=== PATIENT | male | born 1965 | race African-American/Black ===

== ENCOUNTER 2021-04-12 18:39 | Inpatient (IN) | payer MEDICARE, SELFPAY ==
[2021-04-12] VITALS (28 sets, daily range): BP systolic 85–132; BP diastolic 48–65; PULSE 94–117; RESP 15–30; TEMP 36.9; O2SAT 66–100
--- NOTE | ~2021-04-12 | XR_ITS ---
EXAMINATION: XR hand RT min 3V DATE: 04/15/2021 09:09 INDICATION: Osteomyelitis of the right index finger TECHNIQUE: Posteroanterior, oblique and lateral views of the right hand were obtained. COMPARISON: None. FINDINGS: The index finger is flexed on all the images which mildly limits assessment of the mid and distal pha langes on the frontal and oblique projections. Bone alignment is otherwise normal. No fracture. No ev ident cortical erosions or lucent osteolysis to suggest osteomyelitis. Joint spaces appear relatively preserved throughout. Diffuse soft tissue swelling about the second digit. IMPRESSION: 1. No findings suspicious for osteomyelitis or other acute osseous abnormality. Reviewed, dictated and finalized at location A. OGIC DEVELOPER
--- NOTE | ~2021-04-12 | XR_ITS ---
EXAMINATION: XR chest 1V portable DATE: 04/12/2021 19:12 INDICATION: Cough. Shortness of breath. COVID-19 pneumonia. TECHNIQUE: A single frontal view of the chest was obtained. COMPARISON: Chest single view 10/19/2018, chest CT 10/19/2018 FINDINGS: There are airspace opacities in all lung zones bilaterally. No pleural effusion or pneumoth orax. The heart size is normal. There is a stent in right brachiocephalic vein and right subclavian v ein. Vascular stents overlie left shoulder. IMPRESSION: 1. Diffuse lung disease, consistent with pneumonia versus pulmonary edema. Reviewed, dictated and finalized at location A. UIT INSTALLER
--- NOTE | 2021-04-12 18:58 | ECG_ITS ---
Measurements Intervals [place] Rate: 100 P: 77 WI: 147 QRS: -55 QRSD: 121 T: 78 QT: 356 QTc: 461 Interpretive Statements SINUS TACHYCARDIA LEFT ANTERIOR FASCICULAR BLOCK BORDERLINE ST-T WAVE ABNORMALITY- HIGH LATERAL LEADS BASELINE ARTIFACT- I, II, AVR, AVF, V2-V6 ABNORMAL ECG Electronically Signed On 04-12-2021 20:10:12 CRIMINAL DEFENSE LAWYER by Billy Leger D.O.
[2021-04-12 19:50] LABS: Basophils Percent Auto 0.4 % (0.2-1.2); Eosinophils Percent Auto 0.3 % (0-4.4); Hematocrit 42.8 % (42.0-52.0); Hemoglobin 14.4 g/dL (14.0-18.0); Immature Granulocyte Absolute 0.22 K/mm3 (0.00-0.031); Immature Granulocyte Percent A 1.9 % (0-0.5); Lymphocytes Absolute Auto 0.87 K/mm3 (0.9-3.2); Lymphocytes Percent Auto 7.7 % (18.3-44.2); Mean Corpuscular HGB Conc 33.6 g/dl (32-36); Mean Corpuscular Hemoglobin 27.4 pg (26-34); Mean Corpuscular Volume 81.4 fl (80-100); Mean Platelet Volume 12.1 fl (7.4-10.4); Monocytes Absolute Auto 0.9 K/mm3 (0.1-0.6); Neutrophils Absolute Auto 9.3 K/mm3 (1.3-6.7); Neutrophils Percent Auto 81.7 % (45.5-73.1); Nucleated Red Blood Cells Perc 0.2 % (0.0-0.2); Platelet Count Result 234 k/mm3 (150-375); Red Blood Count 5.26 M/mm3 (4.6-6.20); Red Cell Distribution Width 16.2 % (11.5-14.5); White Blood Count 11.3 K/mm3 (4.5-10.0)
--- NOTE | 2021-04-12 19:55 | PC.NURSE ---
Addendum entered by Radha Billings RN 04/12/21 20:08: Pt arrives with congested cough from dialysis, where per report pt able to complete all but 30 min. of scheduled session. Right arm dialysis access. US IV placed in LFA prior to this RN's arrival. Right hand wrapped with gauze and coban, foul odor detected in room. Pt reports wound care changes dressings and has had wound since December 2020 and had skin grafts done r/t infection. Wound NOT assessed by this RN at this time. Original Note: Pt from dialysis (MWF) to ED c/o shortness of breath with EMS. Sats 75% on RA. Pt poor historian. Reports he tested COVID POSITIVE Monday or Monday so either (04/09 - 04/10).
[2021-04-12 20:05] LABS: Alanine Aminotransferase 74 U/L (4-50); Albumin Level 4.1 g/dL (3.5-5.1); Alkaline Phosphatase 89 U/L (38-126); Anion Gap 20 mmol/L (8-16); Aspartate Amino Transferase 187 U/L (17-59); Blood Urea Nitrogen 88 mg/dL (9-20); Carbon Dioxide 27 mmol/L (22-30); Chloride 92 mmol/L (98-107); Glucose 100 mg/dL (65-110); Potassium 3.4 mmol/L (3.4-5.0); Sodium 139 mmol/L (137-145)
[2021-04-12 20:19] LABS: D Dimer 3.16 ug/mL (<0.48)
[2021-04-12 20:22] LABS: Estimated CRCL calculation 5 ml/min; Estimated Glomerular Filt Rate 3
--- NOTE | 2021-04-12 20:56 | PC.NURSE ---
Pt up out of bed and had removed all monitoring equipment and O2. standing at bedside. java technical architect able to redirect pt back to bed with some difficulty and place him back on O2. ED MD DR. Smyth updated pt on planned admission. Pt requires frequent redirection. will continue to monitor.
--- NOTE | 2021-04-12 21:02 | ED.SOB ---
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 Arrington . pt states he had his dialysis this afternoon for 2 and half hours . He also states he was diagnosed with COVID 4 days ago . he denies any chest pain , no H/o of nausea or vomiting a. he also has a wound on the right hand . MD elicited complaint: shortness of breath Context: recent illness Timing: constant Severity: severe Exacerbating factors: nothing Associated symptoms: cough Related Data Allergies Allergy/AdvReac Type Severity Reaction Status Date / Time Contrast Media Allergy Intermediate Hives / Uncoded 04/12/21 18:59 Red Face Review of Systems Review of Systems: All systems reviewed & are unremarkable except as noted in HPI and below Constitutional: Constitutional: Reports no additional constitutional complaints Eyes: Eyes: Reports no additional eye complaints ENT: Reports system reviewed and no additional complaints, except as documented Cardiovascular: Cardiovascular: Reports no additional cardiovascular complaints Respiratory: Respiratory: Reports as per HPI Gastrointestinal: Gastrointestinal: Reports no additional gastrointestinal complaints Musculoskeletal: Musculoskeletal: Reports no additional musculoskeletal complaints Neurologic: Reports system reviewed and no additional complaints, except as documented Psychiatric: Psychiatric: Reports no additional psychiatric complaints Hematologic/Lymphatic: Hematologic/Lymphatic: Reports no additional hematologic/lymphatic complaints Allergic/Immunologic: Allergic/Immunologic: Reports no additional allergic/immunologic complaints Exam Narrative: GENERAL: Ill appearing , well-nourished in mild respiratory distress HEAD: Normocephalic, atraumatic. EYES: PERRLA and EOMI.. NECK: Supple. CHEST: decreased breath sounds HEART: Regular rate and rhythm. No murmur heard. Normal peripheral pulses. ABDOMEN: Soft, nontender, nondistended, normal active bowel sounds. EXTREMITIES: Normal range of motion. No edema. has draing wound on the right dorsum of the hand SKIN: Warm, dry, no rash. NEURO: No focal deficits. Alert and oriented x3. PSYCH: Normal mood and affect. Course Course Emergency Course: Patient still hypoxic is placed on high flow oxygen at 10 L he is also SPO2 is 93 to 94% informed him about his lab work, x-ray findings.Discussed with Dr. Dudley agreed to admit Vital Signs Vital signs: Vital Signs Temperature 36.9 C 04/12/21 18:42 Pulse Rate 103 H 04/12/21 18:42 Respiratory Rate 24 H 04/12/21 18:42 Blood Pressure 132/63 04/12/21 18:42 Pulse Oximetry 79 L 04/12/21 18:42 Temperature 36.9 C 04/12/21 18:42 Pulse Rate 99 04/12/21 22:21 Respiratory Rate 19 04/12/21 22:21 Blood Pressure 98/62 L 04/12/21 22:21 Pulse Oximetry 100 04/12/21 22:21 MDM - SOB/Dyspnea Differential Diagnosis Differential diagnosis: Likely congestive heart failure and community acquired pneumonia Lab Data Result diagrams: 04/12/21 19:41 04/12/21 19:41 Labs: Lab Results 04/12/21 04/12/21 04/12/21 Range/Units 19:41 19:41 19:41 WBC 11.3 H (4.5-10.0) K/mm3 RBC 5.26 (4.6-6.20) M/mm3 Hgb 14.4 (14.0-18.0) g/dL Hct 42.8 (42.0-52.0) % MCV 81.4 (80-100) fl MCH 27.4 (26-34) pg MCHC 33.6 (32-36) g/dl RDW 16.2 H (11.5-14.5) % Plt Count 234 (150-375) k/mm3 MPV 12.1 H (7.4-10.4) fl Immature Gran % (Auto) 1.9 H (0-0.5) % Neut % (Auto) 81.7 H (45.5-73.1) % Lymph % (Auto) 7.7 L (18.3-44.2) % [place] % (Auto) 8.0 (2.6-8.5) % Eos % (Auto) 0.3 (0-4.4)
--- NOTE | 2021-04-12 22:40 | PC.NURSE ---
BC x 2 sent to lab as ordered prior to start of IV ABX. Drawn prior to this RN's arrival on shift.
--- NOTE | 2021-04-12 23:45 | PC.NURSE ---
IV Vancomycin paused at present time as pt has NO IV ACCESS.
[2021-04-13] VITALS (23 sets, daily range): BP systolic 93–109; BP diastolic 48–69; PULSE 74–95; RESP 15–28; TEMP 36.1–36.6; O2SAT 88–100; BMI 39.2
--- NOTE | 2021-04-13 00:13 | PC.NURSE ---
Unable to obtain IV access. IV Vancomycin still paused. Also, [facility] supervisor called to let this RN know that pt only has record of 1 x ED visit in February 2021. No other reports available, although pt stated to this RN and hospitalist that he uses that facility for his healthcare. Pt a poor historian.
--- NOTE | 2021-04-13 02:12 | PC.NURSE ---
Report to [facility] for 211 IMU. Pt has been provided with supplies to clean himself up. Able to follow directions and provide own care. Valentina, housekeeper nanny attempting IV at this time. Pt to go to room 211 afterwards.
--- NOTE | 2021-04-13 02:32 | ADMGEN ---
This patient, Yoshi Collins, was admitted to IMU Room 211-01. Patient/family oriented to hospital policies and general routines including ID bracelet, bed and alarms, visiting hours, pain management, procedures, bathroom and other care routines, personal items, smoking policy, room service/diet, and visiting hours. Information on how to activate the Rapid Response Team has been discussed. Patient/Family are encouraged to report perceived risks to care and to ask questions if they do not understand what they are told or what they should do.
[2021-04-13 04:55] LABS: Basophils Percent Auto 0.3 % (0.2-1.2); Hematocrit 39.9 % (42.0-52.0); Immature Granulocyte Absolute 0.13 K/mm3 (0.00-0.031); Immature Granulocyte Percent A 1.6 % (0-0.5); Lymphocytes Absolute Auto 0.32 K/mm3 (0.9-3.2); Mean Corpuscular HGB Conc 32.6 g/dl (32-36); Mean Corpuscular Volume 82.8 fl (80-100); Mean Platelet Volume 12.4 fl (7.4-10.4); Monocytes Absolute Auto 0.2 K/mm3 (0.1-0.6); Monocytes Percent Auto 2.9 % (2.6-8.5); Neutrophils Absolute Auto 7.2 K/mm3 (1.3-6.7); Neutrophils Percent Auto 91.2 % (45.5-73.1); Platelet Count Result 203 k/mm3 (150-375); Red Blood Count 4.82 M/mm3 (4.6-6.20); Red Cell Distribution Width 16.1 % (11.5-14.5); White Blood Count 7.9 K/mm3 (4.5-10.0)
[2021-04-13 05:14] LABS: Alanine Aminotransferase 62 U/L (4-50); Alkaline Phosphatase 62 U/L (38-126); Anion Gap 23 mmol/L (8-16); Aspartate Amino Transferase 139 U/L (17-59); Bilirubin,Total 2.5 mg/dL (0.2-1.3); Blood Urea Nitrogen 94 mg/dL (9-20); Calcium 8.2 mg/dL (8.4-10.2); Carbon Dioxide 20 mmol/L (22-30); Chloride 92 mmol/L (98-107); Estimated CRCL calculation 5 ml/min; Estimated Glomerular Filt Rate 3; Glucose 237 mg/dL (65-110); Potassium 3.8 mmol/L (3.4-5.0); Sodium 135 mmol/L (137-145)
--- NOTE | 2021-04-13 06:30 | PM.CNNEP ---
Assessment and Plan Assessment and plan (1) ESRD (end stage renal disease): Code(s): N18.6 - End stage renal disease Status: Acute Assessment and Plan: The patient has end-stage renal disease. This is due to diabetes and hypertension. He has been on hemodialysis since 2007. He has never had peritoneal dialysis. He applied for transplant but was rejected, he cannot remember why. The patient has been doing pretty well on dialysis in general. He goes 3 times a week and gets his fluid off. Yesterday he went for dialysis and he stopped it prematurely. He did get about 2-1/2 hours however. He is due tomorrow. (2) COVID-19: Code(s): U07.1 - COVID-19 Status: Acute Assessment and Plan: The patient has COVID. He is on respiratory isolation. He is on some oxygen. The hospitals will manage this. (3) Essential (primary) hypertension: Code(s): I10 - Essential (primary) hypertension Status: Acute Assessment and Plan: The patient has hypertension. His blood pressure is actually doing pretty well right now. He does not take blood pressure medications at home. (4) EMILY (renal osteodystrophy): Code(s): N25.0 - Renal osteodystrophy Status: Acute Assessment and Plan: Will check a phosphorus level in the morning (5) Anemia in chronic kidney disease: Code(s): N18.9 - Chronic kidney disease, unspecified; D63.1 - Anemia in chronic kidney disease Status: Acute Assessment and Plan: Hemoglobin is 13. No need for EPO yet. (6) Hand ulceration: Qualifiers: Non-pressure ulcer stage: with fat layer exposed Qualified Code(s): L98.492 - Non-pressure chronic ulcer of skin of other sites with fat layer exposed Code(s): L98.499 - Non-pressure chronic ulcer of skin of other sites with unspecified severity Status: Acute Assessment and Plan: The patient has a bandage on this (7) Type 2 diabetes mellitus with diabetic nephropathy: Code(s): E11.21 - Type 2 diabetes mellitus with diabetic nephropathy Status: Acute Assessment and Plan: He is on Accu-Cheks and sliding scale insulin. History of Present Illness Reason for Consult Consult date: 04/13/21 Chief Complaint Chief complaint: COVID Pneumonia,Hand Infection History of Present Illness Narrative: Yoshi is a very pleasant 55-year-old gentleman who has multiple medical problems including end-stage renal disease on dialysis since 2007, diabetes, hyperlipidemia, renal osteodystrophy, anemia of chronic kidney disease,, hypertension, history of cardiac arrest, obesity, gastric sleeve, left 5th toe amputation. The patient says that he had a fever and so his dialysis unit asked him to test for the COVID. He apparently tested positive they dialyzed him yesterday in a COVID positive shift. He was on dialysis for about 2-1/2 hours. Later on yesterday he developed shortness of breath. He decided to come to the emergency room. In the ER he was evaluated found to be mildly hypoxic. He was given Oxygen and he feels better today. Patient also has had some nausea and vomiting during this illness. He has got a mild cough. He has got an ulcer on the right hand. This is being treated as an outpatient. There is a bandage on that Past history is as above. Allergies are contrast. Social history he does not smoke or drink. Review of Systems Constitutional: Constitutional: Reports no additional constitutional complaints Eyes: Eyes: Reports no additional eye complaints ENT: Reports system reviewed and no additional complaints, except as documented Cardiovascular: Cardiovascular: Reports no additional cardiovascular complaints Respiratory: Respiratory: Reports no additional respiratory complaints Gastrointestinal: Gastrointestinal: Reports no additional gastrointestinal complaints Genitourinary: Genitourinary: Reports no additional male genitourinar
[2021-04-13 08:52] LABS: Glucose Point of Care 205 mg/dl (65-105)
--- NOTE | 2021-04-13 09:58 | PM.IMHP ---
H&P: HPI History of Present Illness Date/Time: 04/13/21 09:58 Chief Complaint: Shortness of breath Narrative: 55-year-old male with past medical history of diabetic peripheral neuropathy, obesity, obstructive sleep apnea noncompliant with CPAP hypertension, end-stage renal disease on hemodialysis who presented to the ER from hemodialysis via EMS due to shortness of breath. The patient reported that he tested positive for COVID-19 on the . He had been having ill symptoms for 3 or 4 days before that. He admits to having some cough with the cough is nonproductive. He denies any measured fevers but had been having some chills. He denies any nausea or vomiting. He has been on IV vancomycin post dialysis for at least a few weeks due to a infected wound on the dorsum of the right hand. He reports that the wound has been present on his hand since December but several weeks ago became infected. The wound has been draining. He cannot give me specifics on the wound draining but when I and dress the wound it was extremely malodorous and was draining thick green discharge. The patient never did tell me exactly how the wound occurred. He does stated that it was a hand wound. He reports that he has been having watery brown diarrhea numerous times a day. The diarrhea has been going on for a week or more. He denies any significant abdominal pain. Urine patient does not make urine at baseline. The patient reports that he completed all but 30 minutes of his hemodialysis session before coming to the ER. He denies any chest pain. He has been having increasing abdominal distension. He does snore in only intermittently uses his CPAP. On arrival to the ER the patent was satting 79% on room air. While in the ER the patient was placed on 10 L nasal cannula high-flow. His oxygen saturations improved to 94%. But patient was noncompliant with the supplemental oxygen did drop as low as 66% in the ER. The patient reports that he has end-stage renal disease due to poorly controlled diabetes and hypertension. He has been on dialysis for 17 years. Three AV fistulas total. His AV fistula it is still functioning is in his right upper arm. Review of Systems Review of Systems: 12 systems were reviewed with pertinent positives and negatives per HPI. Except as documented in the HPI, all other systems were reviewed and are negative. The patient is a poor historian. [facility] Past Medical History Medical History (Updated 04/13/21 @ 10:27 by Mae Dudley DO) Anemia in chronic kidney disease Diabetic foot ulcer Left 2nd toe Diabetic peripheral neuropathy ESRD (end stage renal disease) Essential (primary) hypertension Hepatic steatosis Obstructive sleep apnea EMILY (renal osteodystrophy) Type 2 diabetes mellitus with diabetic nephropathy Surgical History Surgical History (Updated 04/13/21 @ 10:21 by Mae Dudley DO) Amputation of toe of right foot Right 5th toe History of gastric bypass S/P arteriovenous (AV) graft placement Nonfunctioning graft left forearm and left upper arm, functioning graft right upper arm Status post cataract extraction of both eyes with insertion of intraocular lens Family History Family History Mother Diabetes mellitus Hypertension Father Stomach cancer Social History Social History Smoking status: Never smoker Alcohol intake: never Substance use: never Spiritual care concerns: No Meds Home Medications and Allergies Home Medications Medication Instructions Recorded Confirmed Type B complex-vitamin C-folic acid 1 tablet PO DAILY 04/13/21 04/13/21 History [Jeanine-Eddie] benzonatate 200 mg PO DAILY 04/13/21 04/13/21 History clopidogrel 75 mg PO DAILY 04/13/21 04/13/21 History collagenase clostridium histo. 1 applic TOPICAL DAILY 04/13/21 04/13/21 History [Santyl] fenofibrate nanocrystalliz
[2021-04-13] MEDS: FENOFIBRATE NANOCRYSTALLIZED 145 MG TABLET PO (10:24)
[2021-04-13] MEDS: CLOPIDOGREL BISULFATE 75 MG TABLET PO (10:24)
[2021-04-13] MEDS: VITAMIN B CMPLX/VIT C/FOLIC AC 1 CAPSULE 1 CAP PO (10:24)
[2021-04-13] MEDS: COLLAGENASE OINT 30 GM TUBE 1 APPLIC TOPICAL (10:24)
[2021-04-13] MEDS: INSULIN ASPART (*BKC) 100 UNITS/ML SUB-Q ×2 (10:25→13:52)
[2021-04-13] MEDS: PREGABALIN (*CRX) 75 MG CAPSULE 150 MG PO (10:27)
[2021-04-13 12:52] LABS: Glucose Point of Care 216 mg/dl (65-105)
--- NOTE | 2021-04-13 14:26 | PCRCNOTE ---
CPAP ordered per doctor Hopen. Pt stated they do not wear a cpap at home and does not want to wear one of ours. I reasked the question to make the pt aware of what i was asking and pt stated again they will not wear one here because they do not wear one at home.
--- NOTE | 2021-04-13 15:22 | PM.IMPN ---
Progress Note: A&P Assessment and Plan (1) Acute respiratory failure with hypoxia: Code(s): J96.01 - Acute respiratory failure with hypoxia Status: Acute Assessment and Plan: 04/13/2021 interval history: patient is a 55-year-old male with history of end-stage renal disease on hemodialysis he presented emergency depart with complaint of shortness of breath he was diagnosed with COVID-19 4 days prior to coming to the emergency department patient was started on Decadron however patient is not a candidate for remdesivir and baricitinib due to end-stage renal disease on hemodialysis, today patient states is not a short of breath as when he arrived currently he has required 6 L of oxygen, he also has loose BM most likely secondary to COVID, will continue to monitor and goal is to wean the patient off oxygen, patient is seen by circus supervisor and will have scheduled dialysis. right hand dorsal expect patient has wound patient be seen by wound team and further recommendation to follow, will have a PT OT evaluate the patient. (2) Pneumonia due to COVID-19 virus: Code(s): U07.1 - COVID-19; J12.82 - Pneumonia due to coronavirus disease 2019 Status: Acute (3) Hand ulceration: Qualifiers: Non-pressure ulcer stage: with fat layer exposed Qualified Code(s): L98.492 - Non-pressure chronic ulcer of skin of other sites with fat layer exposed Code(s): L98.499 - Non-pressure chronic ulcer of skin of other sites with unspecified severity Status: Acute (4) Obstructive sleep apnea: Code(s): G47.33 - Obstructive sleep apnea (adult) (pediatric) Status: Acute (5) Infected wound: Code(s): T14.8XXA - Other injury of unspecified body region, initial encounter; L08.9 - Local infection of the skin and subcutaneous tissue, unspecified Status: Acute (6) ESRD (end stage renal disease): Code(s): N18.6 - End stage renal disease Status: Acute Additional Plan Patient has acute respiratory failure likely due to combination of in stated renal disease and fluid status as well as COVID pneumonia. Patient does not have significant edema of his lower extremities but it is having increased abdominal distension. However he is having large amounts of diarrhea and is likely more euvolemic than expected. The I suspect the majority of the patient's hypoxia is due to COVID infection. The patient is not a candidate for baricitinib or Remdesivir due to his end-stage renal disease. Patient has been started on Decadron. The patient initially was on 10 L high-flow and has been weaned down to 6 L nasal cannula. The patient continues to remove his oxygen in his had multiple episodes of desaturations due to this. I suspect the portion of patient's desaturations are also due to his untreated obstructive sleep apnea. Auto titrating CPAP has been ordered however doubt that the patient will comply with use. The patient has an infected hand to the dorsum of the right hand. It sounds as if the patient may have actually been on vancomycin as outpatient but I have been and but able to confirm this. I have requested records from [facility]. Will continue vancomycin and will add cefepime as the patient's wound is malodorous and I am suspicious for Pseudomonas. I have requested the nurses collect a wound culture and Gram stain. Patient has end-stage renal disease on hemodialysis. Nephrology has been consulted for dialysis management. Subjective Date/time seen: 04/13/21 15:22 04/13/2021 interval history: patient is a 55-year-old male with history of end-stage renal disease on hemodialysis he presented emergency depart with complaint of shortness of breath he was diagnosed with COVID-19 4 days prior to coming to the emergency department patient was started on Decadron however patient is not a candidate for remdesivir and baricitinib due to end-stage renal disease on hemodial
[2021-04-13 18:08] LABS: Glucose Point of Care 171 mg/dl (65-105)
[2021-04-13 21:18] LABS: Glucose Point of Care 204 mg/dl (65-105)
[2021-04-13] MEDS: CEFEPIME 0.5 GM in DEXTROSE 5% IN WATER 50 ML IVPB (21:24)
[2021-04-13] MEDS: ROSUVASTATIN 10 MG TABLET PO (21:24)
[2021-04-14] VITALS (17 sets, daily range): BP systolic 98–133; BP diastolic 47–81; PULSE 74–119; RESP 16–24; TEMP 36.2–38.2; O2SAT 82–97
[2021-04-14] MEDS: CLOPIDOGREL BISULFATE 75 MG TABLET PO (08:47)
[2021-04-14] MEDS: BENZONATATE 100 MG CAPSULE 200 MG PO ×2 (08:47→13:28)
[2021-04-14] MEDS: PREGABALIN (*CRX) 75 MG CAPSULE 150 MG PO (08:47)
[2021-04-14] MEDS: COLLAGENASE OINT 30 GM TUBE 1 APPLIC TOPICAL (08:47)
[2021-04-14] MEDS: FENOFIBRATE NANOCRYSTALLIZED 145 MG TABLET PO (08:47)
[2021-04-14] MEDS: VITAMIN B CMPLX/VIT C/FOLIC AC 1 CAPSULE 1 CAP PO (08:48)
[2021-04-14] MEDS: ACETAMINOPHEN 325 MG TABLET 650 MG PO (08:50)
[2021-04-14 08:56] LABS: Hematocrit 42.1 % (42.0-52.0); Hemoglobin 14.4 g/dL (14.0-18.0); Mean Corpuscular HGB Conc 34.2 g/dl (32-36); Mean Platelet Volume 11.8 fl (7.4-10.4); Platelet Count Result 262 k/mm3 (150-375); Red Blood Count 5.33 M/mm3 (4.6-6.20); Red Cell Distribution Width 15.8 % (11.5-14.5)
[2021-04-14 09:01] LABS: Glucose Point of Care 104 mg/dl (65-105)
[2021-04-14 09:14] LABS: Albumin Level 3.7 g/dL (3.5-5.1); Anion Gap 23 mmol/L (8-16); Blood Urea Nitrogen 119 mg/dL (9-20); Calcium 8.9 mg/dL (8.4-10.2); Carbon Dioxide 25 mmol/L (22-30); Chloride 90 mmol/L (98-107); Glucose 94 mg/dL (65-110); Potassium 3.5 mmol/L (3.4-5.0); Sodium 138 mmol/L (137-145)
[2021-04-14 09:22] LABS: Estimated CRCL calculation 5 ml/min; Estimated Glomerular Filt Rate 3
[2021-04-14 13:35] LABS: Glucose Point of Care 126 mg/dl (65-105)
--- NOTE | 2021-04-14 16:35 | PM.IMPN ---
Progress Note: A&P Assessment and Plan (1) Acute respiratory failure with hypoxia: Code(s): J96.01 - Acute respiratory failure with hypoxia Status: Acute Assessment and Plan: 04/13/2021 interval history: patient is a 55-year-old male with history of end-stage renal disease on hemodialysis he presented emergency depart with complaint of shortness of breath he was diagnosed with COVID-19 4 days prior to coming to the emergency department patient was started on Decadron however patient is not a candidate for remdesivir and baricitinib due to end-stage renal disease on hemodialysis, today patient states is not a short of breath as when he arrived currently he has required 6 L of oxygen, he also has loose BM most likely secondary to COVID, will continue to monitor and goal is to wean the patient off oxygen, patient is seen by manager actuarial and will have scheduled dialysis. right hand dorsal expect patient has wound patient be seen by wound team and further recommendation to follow, will have a PT OT evaluate the patient. 04/14/2021 interval history today patient has developed fever and elevated white count suspect patient right hand wound is worsening patient is being treated with cefepime and vancomycin, blood and wound cultures no growth so far, will consult plastic surgeon for further recommendation, patient with COVID being treated with dexamethasone patient oxygen requirement has not changed, patient with end-stage renal disease on hemodialysis patient seen by Nephrology and will have scheduled dialysis will continue to monitor. (2) Pneumonia due to COVID-19 virus: Code(s): U07.1 - COVID-19; J12.82 - Pneumonia due to coronavirus disease 2018 Status: Acute (3) Hand ulceration: Qualifiers: Non-pressure ulcer stage: with fat layer exposed Qualified Code(s): L98.492 - Non-pressure chronic ulcer of skin of other sites with fat layer exposed Code(s): L98.499 - Non-pressure chronic ulcer of skin of other sites with unspecified severity Status: Acute (4) Obstructive sleep apnea: Code(s): G47.33 - Obstructive sleep apnea (adult) (pediatric) Status: Acute (5) Infected wound: Code(s): T14.8XXA - Other injury of unspecified body region, initial encounter; L08.9 - Local infection of the skin and subcutaneous tissue, unspecified Status: Acute (6) ESRD (end stage renal disease): Code(s): N18.6 - End stage renal disease Status: Acute Subjective Date/time seen: 04/14/21 16:35 04/13/2021 interval history: patient is a 55-year-old male with history of end-stage renal disease on hemodialysis he presented emergency depart with complaint of shortness of breath he was diagnosed with COVID-19 4 days prior to coming to the emergency department patient was started on Decadron however patient is not a candidate for remdesivir and baricitinib due to end-stage renal disease on hemodialysis, today patient states is not a short of breath as when he arrived currently he has required 6 L of oxygen, he also has loose BM most likely secondary to COVID, will continue to monitor and goal is to wean the patient off oxygen, patient is seen by manager actuarial and will have scheduled dialysis. right hand dorsal expect patient has wound patient be seen by wound team and further recommendation to follow, will have a PT OT evaluate the patient. 04/14/2021 interval history today patient has developed fever and elevated white count suspect patient right hand wound is worsening patient is being treated with cefepime and vancomycin, blood and wound cultures no growth so far, will consult plastic surgeon for further recommendation, patient with COVID being treated with dexamethasone patient oxygen requirement has not changed, patient with end-stage renal disease on hemodialysis patient seen by Nephrology and will have scheduled dialysis will continue to monitor. Review of
[2021-04-14 17:53] LABS: Glucose Point of Care 149 mg/dl (65-105)
--- NOTE | 2021-04-14 18:03 | WPDCN ---
Assessment and Plan Assessment and plan (1) Infected wound: Code(s): T14.8XXA - Other injury of unspecified body region, initial encounter; L08.9 - Local infection of the skin and subcutaneous tissue, unspecified Status: Acute Assessment and Plan: Does not appear to be infected now. May have been colonized due to poor dressing care. Vancomycin or oral antibiotic should be sufficient if anything. Pending culture is itself likely contaminated. No surgical intervention for now. (2) Hand ulceration: Qualifiers: Non-pressure ulcer stage: with fat layer exposed Qualified Code(s): L98.492 - Non-pressure chronic ulcer of skin of other sites with fat layer exposed Code(s): L98.499 - Non-pressure chronic ulcer of skin of other sites with unspecified severity Status: Acute Assessment and Plan: Chronic. Likely due to infection and possibly surgical intervention remotely. HPI Data of Consult Date/Time: 04/14/21 18:03 Requesting Physician: Mae Dudley DO Primary Care Provider: Nigel MaradiagaMD Consult Narrative Narrative: Yoshi Collins is a 55 year old male patient with end stage renal disease and other illnesses including being positive for Covid-19 on April 09. Admitted in ill health from dialysis couple days ago. I'm asked to see him for a wound of the dorsal right hand extending about 6 x 1.5 cm onto the right index finger. He was awake when i saw him and he tried to be conversant. He was however unable to tell me anything of use about his hand. He kept saying that it was a wound and he may have had surgery for it. There is a report that he has been receiving IV Vanco with dialysis for several weeks apparently for a finger infection.. The wound appears chronic. No odor at the time I examined it. No erythema. Pt did not withdraw as if in pain as I examined it. No pus. No necrotic tissue. Generally granulated and beefy red. The index finger appears to have no extensor tendon function. Is able to flex a little. The wound appears stable. Appears to be healing. Etiology unknown to us at present. Should heal with basic wound care, but with loss of extensor function and and will be minimally useful. I will suggest dressing care prior to discharge. FORMERLY [facility] Past Medical History Medical History (Updated 04/13/21 @ 10:27 by Mae Dudley DO) Anemia in chronic kidney disease Diabetic foot ulcer Left 2nd toe Diabetic peripheral neuropathy ESRD (end stage renal disease) Essential (primary) hypertension Hepatic steatosis Obstructive sleep apnea EMILY (renal osteodystrophy) Type 2 diabetes mellitus with diabetic nephropathy Surgical History Surgical History (Updated 04/13/21 @ 10:21 by Mae Dudley DO) Amputation of toe of right foot Right 5th toe History of gastric bypass S/P arteriovenous (AV) graft placement Nonfunctioning graft left forearm and left upper arm, functioning graft right upper arm Status post cataract extraction of both eyes with insertion of intraocular lens Family History Family History Mother Diabetes mellitus Hypertension Father Stomach cancer Social History Social History Smoking status: Never smoker Alcohol intake: never Substance use: never Spiritual care concerns: No Meds Home Medications and Allergies Home Medications Medication Instructions Recorded Confirmed Type B complex-vitamin C-folic acid 1 tablet PO DAILY 04/13/21 04/13/21 History [Jeanine-Eddie] benzonatate 200 mg PO DAILY 04/13/21 04/13/21 History clopidogrel 75 mg PO DAILY 04/13/21 04/13/21 History collagenase clostridium histo. 1 applic TOPICAL DAILY 04/13/21 04/13/21 History [Santyl] fenofibrate nanocrystallized 145 mg PO DAILY 04/13/21 04/13/21 History fluticasone propionate 1 spray INTRANASAL DAILY PRN 04/13/21
--- NOTE | 2021-04-14 18:35 | PM.PNNEP ---
Progress Note: A&P Assessment and Plan (1) ESRD (end stage renal disease): Code(s): N18.6 - End stage renal disease Status: Acute Assessment and Plan: The patient has end-stage renal disease. This is due to diabetes and hypertension. Volume status looks okay. Potassium is normal he will get dialysis tomorrow. (2) COVID-19: Code(s): U07.1 - COVID-19 Status: Acute Assessment and Plan: The patient has COVID. He is on respiratory isolation. He is on some oxygen. he is also on cefepime to cover for bacterial pneumonia in case that is there. The hospitals will manage this. (3) Essential (primary) hypertension: Code(s): I10 - Essential (primary) hypertension Status: Acute Assessment and Plan: The patient has hypertension. His blood pressure is A bit soft. He is on no blood pressure pills. Will start midodrine to help us get fluid off tomorrow (4) EMILY (renal osteodystrophy): Code(s): N25.0 - Renal osteodystrophy Status: Acute Assessment and Plan: phosphorus level an astronomical 13. Will add sevelamer and recheck it tomorrow (5) Anemia in chronic kidney disease: Code(s): N18.9 - Chronic kidney disease, unspecified; D63.1 - Anemia in chronic kidney disease Status: Acute Assessment and Plan: Hemoglobin is 13. No need for EPO yet. (6) Hand ulceration: Qualifiers: Non-pressure ulcer stage: with fat layer exposed Qualified Code(s): L98.492 - Non-pressure chronic ulcer of skin of other sites with fat layer exposed Code(s): L98.499 - Non-pressure chronic ulcer of skin of other sites with unspecified severity Status: Acute Assessment and Plan: The patient has a bandage on this. It started as ulcer and now is osteomyelitis. (7) Type 2 diabetes mellitus with diabetic nephropathy: Code(s): E11.21 - Type 2 diabetes mellitus with diabetic nephropathy Status: Acute Assessment and Plan: He is on Accu-Cheks and sliding scale insulin. Subjective Date/time seen: 04/14/21 18:35 Interval history: Yoshi feels better today. No chest pain or shortness of breath Review of Systems Cardiovascular: Cardiovascular: Reports no additional cardiovascular complaints Respiratory: Respiratory: Reports no additional respiratory complaints Gastrointestinal: Gastrointestinal: Reports no additional gastrointestinal complaints Genitourinary: Genitourinary: Reports no additional male genitourinary complaints Exam Narrative: WDWN in NAD skin no rash head ncat lungs clear bilaterally cor reg no rub or gallop abd BS+ nontender and soft ext no edema. Objective Data Vital Signs Vital Signs: Vital Signs - 24 hr 04/13/21 19:46 04/13/21 20:00 04/13/21 22:00 Temperature 36.3 C L Pulse Rate 86 82 94 Respiratory Rate 20 20 Blood Pressure 103/53 L Pulse Oximetry 100 100 04/13/21 23:44 04/14/21 00:00 04/14/21 02:00 Temperature 36.4 C Pulse Rate 74 83 90 Respiratory Rate 20 20 Blood Pressure 107/56 L Pulse Oximetry 92 92 04/14/21 04:00 04/14/21 06:00 04/14/21 08:00 Temperature 37.1 C 38.2 C H Pulse Rate 101 H 117 H 116 H Respiratory Rate 22 H 22 H Blood Pressure 112/76 133/81 Pulse Oximetry 89 L 85 L 04/14/21 08:40 04/14/21 08:50 04/14/21 09:50 Temperature 38.2 C H 36.9 C Pulse Rate Respiratory Rate Blood Pressure Pulse Oximetry 90 04/14/21 10:00 04/14/21 12:00 04/14/21 16:00 Temperature 36.3 C L 36.2 C L Pulse Rate 101 H 92 95 Respiratory Rate 20 24 H Blood Pressure 103/56 L 98/47 L Pulse Oximetry 90 82 L Intake/Output Intake/Output: Intake & Output 04/11/21 04/12/21 04/13/21 04/14/21 23:59 23:59 23:59 23:59 Intake Total 590 100 Output Total 0 Balance 590 100 Meds/Results Medications: Active Medications Generic Name Dose Route Start Last Admin Trade Name Maynorq PRN Reas
[2021-04-14 19:31] LABS: Vancomycin Random 22.6 ug/mL (10-20)
[2021-04-14 19:58] LABS: Hepatitis B Surface Antigen Negative (Negative)
[2021-04-14 20:15] LABS: Hepatitis B Surface Anti Res Negative
[2021-04-14] MEDS: ROSUVASTATIN 10 MG TABLET PO (22:09)
[2021-04-14] MEDS: CEFEPIME 0.5 GM in DEXTROSE 5% IN WATER 50 ML IVPB (22:26)
[2021-04-14 22:44] LABS: Glucose Point of Care 143 mg/dl (65-105)
[2021-04-15] VITALS (30 sets, daily range): BP systolic 88–193; BP diastolic 28–110; PULSE 81–109; RESP 16–26; TEMP 35.9–37.7; O2SAT 91–98
[2021-04-15 05:29] LABS: Hematocrit 42.3 % (42.0-52.0); Hemoglobin 13.9 g/dL (14.0-18.0); Mean Corpuscular HGB Conc 32.9 g/dl (32-36); Mean Corpuscular Volume 82.1 fl (80-100); Mean Platelet Volume 11.7 fl (7.4-10.4); Platelet Count Result 236 k/mm3 (150-375); Red Blood Count 5.15 M/mm3 (4.6-6.20); Red Cell Distribution Width 15.9 % (11.5-14.5); White Blood Count 11.2 K/mm3 (4.5-10.0)
[2021-04-15 05:58] LABS: Albumin Level 3.2 g/dL (3.5-5.1); Anion Gap 25 mmol/L (8-16); Calcium 8.8 mg/dL (8.4-10.2); Carbon Dioxide 21 mmol/L (22-30); Chloride 90 mmol/L (98-107); Estimated CRCL calculation 4 ml/min; Estimated Glomerular Filt Rate 2; Glucose 107 mg/dL (65-110); Potassium 3.3 mmol/L (3.4-5.0); Sodium 136 mmol/L (137-145)
[2021-04-15 06:21] LABS: Blood Urea Nitrogen 138 mg/dL (9-20); Phosphorus 15.4 mg/dL (2.5-4.5)
[2021-04-15] MEDS: COLLAGENASE OINT 30 GM TUBE 1 APPLIC TOPICAL (08:34)
[2021-04-15] MEDS: FENOFIBRATE NANOCRYSTALLIZED 145 MG TABLET PO (08:34)
[2021-04-15] MEDS: CLOPIDOGREL BISULFATE 75 MG TABLET PO (08:34)
[2021-04-15] MEDS: PREGABALIN (*CRX) 75 MG CAPSULE 150 MG PO (08:34)
[2021-04-15] MEDS: BENZONATATE 100 MG CAPSULE 200 MG PO (08:34)
[2021-04-15] MEDS: VITAMIN B CMPLX/VIT C/FOLIC AC 1 CAPSULE 1 CAP PO (08:34)
[2021-04-15 08:47] LABS: Glucose Point of Care 117 mg/dl (65-105)
--- NOTE | 2021-04-15 12:40 | PM.PNNEP ---
Progress Note: A&P Assessment and Plan (1) ESRD (end stage renal disease): Code(s): N18.6 - End stage renal disease Status: Acute Assessment and Plan: The patient has end-stage renal disease. This is due to diabetes and hypertension. Volume status looks okay. Potassium is normal he will get dialysis today. (2) COVID-19: Code(s): U07.1 - COVID-19 Status: Acute Assessment and Plan: The patient has COVID. He is on respiratory isolation. He is on 7L/m of oxygen on high-flow nasal cannula. he is also on cefepime to cover for bacterial pneumonia in case that is there. The hospitalist will manage this. (3) Essential (primary) hypertension: Code(s): I10 - Essential (primary) hypertension Status: Acute Assessment and Plan: The patient has hypertension. His blood pressure is still a bit soft. He is on no blood pressure pills. Will start midodrine to help us get fluid off tomorrow (4) EMILY (renal osteodystrophy): Code(s): N25.0 - Renal osteodystrophy Status: Acute Assessment and Plan: phosphorus level Is even higher at 15. His binder at home is Velphoro (5) Anemia in chronic kidney disease: Code(s): N18.9 - Chronic kidney disease, unspecified; D63.1 - Anemia in chronic kidney disease Status: Acute Assessment and Plan: Hemoglobin is 13. No need for EPO yet. (6) Hand ulceration: Qualifiers: Non-pressure ulcer stage: with fat layer exposed Qualified Code(s): L98.492 - Non-pressure chronic ulcer of skin of other sites with fat layer exposed Code(s): L98.499 - Non-pressure chronic ulcer of skin of other sites with unspecified severity Status: Acute Assessment and Plan: The patient has a bandage on this. It started as ulcer and now is osteomyelitis. (7) Type 2 diabetes mellitus with diabetic nephropathy: Code(s): E11.21 - Type 2 diabetes mellitus with diabetic nephropathy Status: Acute Assessment and Plan: He is on Accu-Cheks and sliding scale insulin. Subjective Date/time seen: 04/15/21 12:40 Interval history: Yoshi feels better today. No chest pain or shortness of breath he will get dialysis today. Exam Narrative: WDWN in NAD skin no rash Or subcu nodules head ncat lungs clear bilaterally cor reg no rub abd BS+ nontender and soft ext no edema. Objective Data Vital Signs Vital Signs: Vital Signs - 24 hr 04/14/21 14:00 04/14/21 16:00 04/14/21 18:00 Temperature 36.2 C L Pulse Rate 101 H 86 92 Respiratory Rate 24 H Blood Pressure 98/47 L Pulse Oximetry 95 04/14/21 19:09 04/14/21 20:00 04/14/21 22:00 Temperature 36.5 C Pulse Rate 89 88 101 H Respiratory Rate 16 16 Blood Pressure 99/64 L Pulse Oximetry 95 95 04/14/21 22:09 04/15/21 00:00 04/15/21 02:00 Temperature 37.0 C Pulse Rate 92 88 82 Respiratory Rate 26 H Blood Pressure 94/56 L Pulse Oximetry 96 93 04/15/21 04:00 04/15/21 06:00 04/15/21 08:00 Temperature 37.2 C 37.4 C Pulse Rate 84 99 97 Respiratory Rate 24 H 22 H Blood Pressure 102/70 112/68 Pulse Oximetry 93 91 Intake/Output Intake/Output: Intake & Output 04/12/21 04/13/21 04/14/21 04/15/21 23:59 23:59 23:59 23:59 Intake Total 640 300 120 Output Total 0 0 Balance 640 300 120 Meds/Results Medications: Active Medications Generic Name Dose Route Start Last Admin Trade Name Freq PRN Reason Stop Dose Admin Acetaminophen 650 mg 04/12/21 22:33 04/14/21 08:50 Acetaminophen 325 Mg Tablet PO 650 mg Q4H PRN Administration Mild Pain (1-3) or Fever Benzonatate 200 mg 04/13/21 05:12 04/15/21 08:34 Benzonatate 100 Mg Capsule PO 200 mg TID PRN Administration Cough Clopidogrel Bisulfate 75 mg 04/13/21 09:00 04/15/21 08:34 Clopidogrel Bisulfate 75 Mg Tablet PO 75 mg DAILY LOIDA Administration Collagenase 1 mei
[2021-04-15 12:41] LABS: Glucose Point of Care 127 mg/dl (65-105)
--- NOTE | 2021-04-15 14:35 | PC.NURSE ---
Patient to dialysis via bed.
--- NOTE | 2021-04-15 15:41 | PM.IMPN ---
Progress Note: A&P Assessment and Plan (1) Acute respiratory failure with hypoxia: Code(s): J96.01 - Acute respiratory failure with hypoxia Status: Acute Assessment and Plan: 04/13/2021 interval history: patient is a 55-year-old male with history of end-stage renal disease on hemodialysis he presented emergency depart with complaint of shortness of breath he was diagnosed with COVID-19 4 days prior to coming to the emergency department patient was started on Decadron however patient is not a candidate for remdesivir and baricitinib due to end-stage renal disease on hemodialysis, today patient states is not a short of breath as when he arrived currently he has required 6 L of oxygen, he also has loose BM most likely secondary to COVID, will continue to monitor and goal is to wean the patient off oxygen, patient is seen by record label intern and will have scheduled dialysis. right hand dorsal expect patient has wound patient be seen by wound team and further recommendation to follow, will have a PT OT evaluate the patient. 04/14/2021 interval history today patient has developed fever and elevated white count suspect patient right hand wound is worsening patient is being treated with cefepime and vancomycin, blood and wound cultures no growth so far, will consult plastic surgeon for further recommendation, patient with COVID being treated with dexamethasone patient oxygen requirement has not changed, patient with end-stage renal disease on hemodialysis patient seen by Nephrology and will have scheduled dialysis will continue to monitor. 04/15/2021 interval history on 04/14 patient had developed fever and elevated white count, today patient has no fever and white counts are trending down, suspect patient right hand wound was worsening patient is being treated with cefepime and vancomycin, wound cultures is growing E coli, sensitivities pending, blood culture no growth so far, consulted plastic surgeon for further recommendation, patient was seen by the surgeon does not suspect the wound is worsening and does not need any surgical intervention, patient with COVID being treated with dexamethasone patient oxygen requirement has not changed, patient with end-stage renal disease on hemodialysis patient seen by Nephrology and will have scheduled dialysis will continue to monitor. (2) Pneumonia due to COVID-19 virus: Code(s): U07.1 - COVID-19; J12.82 - Pneumonia due to coronavirus disease 2019 Status: Acute (3) Hand ulceration: Qualifiers: Non-pressure ulcer stage: with fat layer exposed Qualified Code(s): L98.492 - Non-pressure chronic ulcer of skin of other sites with fat layer exposed Code(s): L98.499 - Non-pressure chronic ulcer of skin of other sites with unspecified severity Status: Acute (4) Obstructive sleep apnea: Code(s): G47.33 - Obstructive sleep apnea (adult) (pediatric) Status: Acute (5) Infected wound: Code(s): T14.8XXA - Other injury of unspecified body region, initial encounter; L08.9 - Local infection of the skin and subcutaneous tissue, unspecified Status: Acute (6) ESRD (end stage renal disease): Code(s): N18.6 - End stage renal disease Status: Acute Additional Plan Patient has acute respiratory failure likely due to combination of in stated renal disease and fluid status as well as COVID pneumonia. Patient does not have significant edema of his lower extremities but it is having increased abdominal distension. However he is having large amounts of diarrhea and is likely more euvolemic than expected. The I suspect the majority of the patient's hypoxia is due to COVID infection. The patient is not a candidate for baricitinib or Remdesivir due to his end-stage renal disease. Patient has been started on Decadron. The patient initially was on 10 L high-flow and has been weaned down to 6 L nasal cannula. The patient continues to remove his o
[2021-04-15] MEDS: SODIUM CHLORIDE 0.9% IV 1,000 ML 999 ML IV CONT (16:10)
--- NOTE | 2021-04-15 17:53 | WPDPN ---
Progress Note: A&P Assessment and Plan (1) Hand ulceration: Qualifiers: Non-pressure ulcer stage: with fat layer exposed Qualified Code(s): L98.492 - Non-pressure chronic ulcer of skin of other sites with fat layer exposed Code(s): L98.499 - Non-pressure chronic ulcer of skin of other sites with unspecified severity Status: Acute Additional Plan Hand not infected. Wound healing as expected. Time Spent With Patient Time with patient: less than 15 minutes Subjective Date/time seen: 04/15/21 17:53 Pt seen in dialysis where he had pulled out his catheter just prior to my visit. Reported to be very antsy and easily startled. He is familiar with the nurse there from [employer] [facility]. He is at times verbally appropriate. However he still will not divulge the story of his right index finger wound. He starts to answer the question as to its cause, but each time doesn't finish. Gives no clue. WBC remains around 11. I doubt strongly that is caused by his hand wound. Wound culture growing e.coli, likely contaminant. There is no sign that there is a finger infection at present. His agitation and slight elevated WBC is certainly due to other cause. Exam Narrative: Pt is somewhat agitated. Right hand wound easily examined. No pain involved with passive flexion or extension. No purulence. X-ray of the hand today does not suggest osteomyelitis. Objective Data Vital Signs Vital Signs: Vital Signs - 24 hr 04/14/21 18:00 04/14/21 19:09 04/14/21 20:00 Temperature 97.7 F Pulse Rate 92 89 88 Respiratory Rate 16 16 Blood Pressure 99/64 L Pulse Oximetry 95 95 04/14/21 22:00 04/14/21 22:09 04/15/21 00:00 Temperature 98.6 F Pulse Rate 101 H 92 88 Respiratory Rate 26 H Blood Pressure 94/56 L Pulse Oximetry 96 93 04/15/21 02:00 04/15/21 04:00 04/15/21 06:00 Temperature 99 F Pulse Rate 82 84 99 Respiratory Rate 24 H Blood Pressure 102/70 Pulse Oximetry 93 04/15/21 08:00 04/15/21 08:30 04/15/21 10:00 Temperature 99.4 F Pulse Rate 90 88 Respiratory Rate 22 H Blood Pressure 112/68 Pulse Oximetry 91 93 04/15/21 12:41 04/15/21 14:40 04/15/21 14:51 Temperature 96.9 F L 98.0 F Pulse Rate 93 100 94 Respiratory Rate 22 H 16 Blood Pressure 104/58 L 154/56 H 142/67 H Pulse Oximetry 93 04/15/21 15:00 04/15/21 15:15 04/15/21 15:30 Temperature Pulse Rate 98 93 96 Respiratory Rate Blood Pressure 140/49 L 135/64 140/65 Pulse Oximetry 04/15/21 15:45 04/15/21 16:00 04/15/21 16:15 Temperature Pulse Rate 81 89 94 Respiratory Rate Blood Pressure 193/110 H 174/78 H 130/93 H Pulse Oximetry 04/15/21 16:30 04/15/21 16:48 04/15/21 17:00 Temperature Pulse Rate 98 102 H 109 H Respiratory Rate Blood Pressure 142/50 H 131/57 L 102/47 L Pulse Oximetry 04/15/21 17:15 04/15/21 17:25 04/15/21 17:38 Temperature 98.6 F Pulse Rate 104 H 108 H 106 H Respiratory Rate 16 Blood Pressure 106/55 L 130/28 L 102/68 Pulse Oximetry Intake/Output Intake/Output: Intake & Output 04/12/21 04/13/21 04/14/21 04/15/21 23:59 23:59 23:59 23:59 Intake Total 640 300 370 Output Total 0 1936 Balance 640 300 -1566 Meds/Results Medications: Active Medications Generic Name Dose Route Start Last Admin Trade Name Maynorq PRN Reason Stop Dose Admin Acetaminophen 650 mg 04/12/21 22:33 04/14/21 08:50 Acetaminophen 325 Mg Tablet PO 650 mg Q4H PRN Administration Mild Pain (1-3) or Fever Benzonatate 200 mg 04/13/21 05:12 04/15/21 08:34 Benzonatate 100 Mg Capsule PO 200 mg TID PRN Administration Cough Clopidogrel Bisulfate 75 mg 04/13/21 09:00 04/15/21 08:34 Clopidogrel Bisulfate 75 Mg Tablet PO 75 mg DAILY LOIDA Administration Collagenase 1 applic 04/13/21 09:00 04/15/21 08:34 Collagenase Oint 30 Gm Tube TOPICAL 1 applic DAILY LOIDA Administration Dextrose 12.5 gm 01
--- NOTE | 2021-04-15 18:10 | PC.NURSE ---
Patient returned to room following dialysis.
[2021-04-15 18:14] LABS: Glucose Point of Care 119 mg/dl (65-105)
[2021-04-15 20:50] LABS: Glucose Point of Care 99 mg/dl (65-105)
[2021-04-15 20:55] LABS: Alveolar/Arterial O2 Gradient 329.1 mmHg; Base Excess ABG -0.8 mEq/l (+/-2.0); Fractional Inspired Oxygen 60 %; Oxygen Content ABG 18.5 %vol (16.0-22.0); Oxygen Saturation ABG 91.4 % (95.0-100.0); PCO2 ABG 35.9 mmHg (35.0-45.0); PO2 ABG 59.2 mmHg (80.0-100.0); PO2 FiO2 Ratio Arterial Blood 0.99 %; pH ABG 7.425 (7.350-7.450)
[2021-04-15 20:58] LABS: Oxyhemoglobin 87.6 % THb (90.0-100.0); Site Drawn LEFT BRACHIAL
[2021-04-15 20:59] LABS: Device HIGH FLOW NASAL CANN; Modified Allen's Test Pass
[2021-04-15 21:59] LABS: Vancomycin Random 18.1 ug/mL (10-20)
[2021-04-15] MEDS: CEFEPIME 0.5 GM in DEXTROSE 5% IN WATER 50 ML IVPB (23:07)
[2021-04-15] MEDS: ROSUVASTATIN 10 MG TABLET PO (23:08)
[2021-04-16] VITALS (14 sets, daily range): BP systolic 102–118; BP diastolic 56–85; PULSE 87–106; RESP 20–24; TEMP 36.3–36.9; O2SAT 90–100
[2021-04-16 05:04] LABS: Hematocrit 40.9 % (42.0-52.0); Hemoglobin 13.6 g/dL (14.0-18.0); Mean Corpuscular HGB Conc 33.3 g/dl (32-36); Mean Corpuscular Hemoglobin 27.1 pg (26-34); Mean Corpuscular Volume 81.6 fl (80-100); Mean Platelet Volume 11.2 fl (7.4-10.4); Platelet Count Result 230 k/mm3 (150-375); Red Blood Count 5.01 M/mm3 (4.6-6.20); Red Cell Distribution Width 15.8 % (11.5-14.5); White Blood Count 11.5 K/mm3 (4.5-10.0)
[2021-04-16 05:13] LABS: Albumin Level 3.4 g/dL (3.5-5.1); Anion Gap 21 mmol/L (8-16); Blood Urea Nitrogen 103 mg/dL (9-20); Calcium 8.3 mg/dL (8.4-10.2); Carbon Dioxide 21 mmol/L (22-30); Chloride 93 mmol/L (98-107); Glucose 125 mg/dL (65-110); Potassium 3.4 mmol/L (3.4-5.0); Sodium 135 mmol/L (137-145)
[2021-04-16 05:29] LABS: Estimated CRCL calculation 6 ml/min; Estimated Glomerular Filt Rate 4
[2021-04-16 08:30] LABS: Glucose Point of Care 110 mg/dl (65-105)
[2021-04-16] MEDS: VITAMIN B CMPLX/VIT C/FOLIC AC 1 CAPSULE 1 CAP PO (10:04)
[2021-04-16] MEDS: CLOPIDOGREL BISULFATE 75 MG TABLET PO (10:04)
[2021-04-16] MEDS: FENOFIBRATE NANOCRYSTALLIZED 145 MG TABLET PO (10:04)
[2021-04-16] MEDS: COLLAGENASE OINT 30 GM TUBE 1 APPLIC TOPICAL (10:04)
[2021-04-16] MEDS: BENZONATATE 100 MG CAPSULE 200 MG PO ×2 (10:05→20:35)
[2021-04-16] MEDS: PREGABALIN (*CRX) 75 MG CAPSULE 150 MG PO (10:07)
[2021-04-16 12:15] LABS: Glucose Point of Care 165 mg/dl (65-105)
--- NOTE | 2021-04-16 12:23 | P.PNNP_ITS ---
Progress Note: A&P Assessment and Plan (1) ESRD (end stage renal disease): Code(s): N18.6 - End stage renal disease Status: Acute Assessment and Plan: * plan HD tomorrow and continue 3x/week treatments * due to HTN and diabetes * follow electrolytes, volume status, and clearance (2) COVID-19: Code(s): U07.1 - COVID-19 Status: Acute Assessment and Plan: * unfortunately, oxygen requirements have been increased since admission * on antibiotic to cover for possible bacterial pneumonia * add decadron and/or remdesivir?? * follow respiratory status closely (3) Essential (primary) hypertension: Code(s): I10 - Essential (primary) hypertension Status: Acute Assessment and Plan: * reasonable control without medications * consider midodrine (4) EMILY (renal osteodystrophy): Code(s): N25.0 - Renal osteodystrophy Status: Acute Assessment and Plan: * unable to take Velphorio * will resume on discharge * unknown what binders he tolerated (5) Anemia in chronic kidney disease: Code(s): N18.9 - Chronic kidney disease, unspecified; D63.1 - Anemia in chronic kidney disease Status: Acute Assessment and Plan: * H/H supratherapeutic at this time * hold Epogen with HD treatments (6) Hand ulceration: Qualifiers: Non-pressure ulcer stage: with fat layer exposed Qualified Code(s): L98.492 - Non-pressure chronic ulcer of skin of other sites with fat layer exposed Code(s): L98.499 - Non-pressure chronic ulcer of skin of other sites with unspecified s everity Status: Acute Assessment and Plan: * Plastic surgery following * on antibiotics * would cultures noted * local care (7) Type 2 diabetes mellitus with diabetic nephropathy: Code(s): E11.21 - Type 2 diabetes mellitus with diabetic nephropathy Status: Acute Assessment and Plan: * follow Accu-Cheks * on sliding scale insulin Will continue to follow. Subjective Date/time seen: 04/16/21 12:23 Chart reviewed - assuming care from Dr. Levine; no apparent distress voiced at the time of my visit; tolerated dialysis yesterday without any issue or problems; finger wound appears stable (as per Dr. Skelton); no events overnight or earlier this AM. Exam Narrative: General: WD/WN male in NAD Heart: normal S1 and S2; no rub Lungs: clear to auscultation Abdomen: soft, nontender, nondistended, positive bowel sounds Extremities: no cyanosis or clubbing; no edema Skin: warm and dry Objective Data Vital Signs Vital Signs: Vital Signs Temp Pulse Resp BP Pulse Ox 04/16/21 12:00 36.6 C 98 20 116/64 98 04/16/21 10:30 96 04/16/21 10:00 99 04/16/21 08:00 36.6 C 95 20 102/56 L 90 04/16/21 06:00 104 H 04/16/21 04:00 36.6 C 106 H 24 H 111/76 97 04/16/21 02:00 104 H 04/16/21 00:00 106 H 91 04/15/21 23:49 37.0 C 105 H 20 95/53 L 91 04/15/21 22:00 102 H 04/15/21 20:00 37.7 C H 106 H 22 H 88/51 L 93 04/15/21 18:15 94 04/15/21 18:13 37.4 C 102 H 22 H 94/52 L 98 04/15/21 18:00 104 H 04/15/21 17:38 37.0 C 106 H 16 102/68 04/15/21 17:25 108 H 130/28 L 04/15/21 17:15 104 H 106/55 L 04/15/21 17:00
--- NOTE | 2021-04-16 12:23 | PM.PNNEP ---
Progress Note: A&P Assessment and Plan (1) ESRD (end stage renal disease): Code(s): N18.6 - End stage renal disease Status: Acute Assessment and Plan: plan HD tomorrow and continue 3x/week treatments due to HTN and diabetes follow electrolytes, volume status, and clearance (2) COVID-19: Code(s): U07.1 - COVID-19 Status: Acute Assessment and Plan: unfortunately, oxygen requirements have been increased since admission on antibiotic to cover for possible bacterial pneumonia add decadron and/or remdesivir?? follow respiratory status closely (3) Essential (primary) hypertension: Code(s): I10 - Essential (primary) hypertension Status: Acute Assessment and Plan: reasonable control without medications consider midodrine (4) EMILY (renal osteodystrophy): Code(s): N25.0 - Renal osteodystrophy Status: Acute Assessment and Plan: unable to take Velphorio will resume on discharge unknown what binders he tolerated (5) Anemia in chronic kidney disease: Code(s): N18.9 - Chronic kidney disease, unspecified; D63.1 - Anemia in chronic kidney disease Status: Acute Assessment and Plan: H/H supratherapeutic at this time hold Epogen with HD treatments (6) Hand ulceration: Qualifiers: Non-pressure ulcer stage: with fat layer exposed Qualified Code(s): L98.492 - Non-pressure chronic ulcer of skin of other sites with fat layer exposed Code(s): L98.499 - Non-pressure chronic ulcer of skin of other sites with unspecified severity Status: Acute Assessment and Plan: Plastic surgery following on antibiotics would cultures noted local care (7) Type 2 diabetes mellitus with diabetic nephropathy: Code(s): E11.21 - Type 2 diabetes mellitus with diabetic nephropathy Status: Acute Assessment and Plan: follow Accu-Cheks on sliding scale insulin Will continue to follow. Subjective Date/time seen: 04/16/21 12:23 Chart reviewed - assuming care from Dr. Levine; no apparent distress voiced at the time of my visit; tolerated dialysis yesterday without any issue or problems; finger wound appears stable (as per Dr. Skelton); no events overnight or earlier this AM. Exam Narrative: General: WD/WN male in NAD Heart: normal S1 and S2; no rub Lungs: clear to auscultation Abdomen: soft, nontender, nondistended, positive bowel sounds Extremities: no cyanosis or clubbing; no edema Skin: warm and dry Objective Data Vital Signs Vital Signs: Vital Signs Temp Pulse Resp BP Pulse Ox 04/16/21 12:00 36.6 C 98 20 116/64 98 04/16/21 10:30 96 04/16/21 10:00 99 04/16/21 08:00 36.6 C 95 20 102/56 L 90 04/16/21 06:00 104 H 04/16/21 04:00 36.6 C 106 H 24 H 111/76 97 04/16/21 02:00 104 H 04/16/21 00:00 106 H 91 04/15/21 23:49 37.0 C 105 H 20 95/53 L 91 04/15/21 22:00 102 H 04/15/21 20:00 37.7 C H 106 H 22 H 88/51 L 93 04/15/21 18:15 94 04/15/21 18:13 37.4 C 102 H 22 H 94/52 L 98 04/15/21 18:00 104 H 04/15/21 17:38 37.0 C 106 H 16 102/68 04/15/21 17:25 108 H 130/28 L 04/15/21 17:15 104 H 106/55 L 04/15/21 17:00 109 H 102/47 L 04/15/21 16:48 102 H 131/57 L 04/15/21 16:30 98 142/50 H 04/15/21 16:15 94 130/93 H 04/15/21 16:00 99 174/78 H 04/15/21 15:45 81 193/110 H 04/15/21 15:30 96 140/65 Intake/Output Intake/Output: Intake & Output 04/13/21 04/14/21 04/15/21 04/16/21 23:59 23:59 23:59 23:59 Intake Total 640 350 420 560 Output Total 0 1936 500 Balance 640 350 -1516 60 Meds/Results Medications: Active Medications Generic Name Dose Route Start Last Admin Trade Name Freq PRN Reason Stop Dose Admin Acetaminophen 650 mg 04/12/21 22:33 04/14/21 08:50 Acetaminophen 325 Mg Tablet PO 650 mg Q4H PRN Administration
--- NOTE | 2021-04-16 16:22 | PM.IMPN ---
Progress Note: A&P Assessment and Plan (1) Acute respiratory failure with hypoxia: Code(s): J96.01 - Acute respiratory failure with hypoxia Status: Acute Assessment and Plan: 04/13/2021 interval history: patient is a 55-year-old male with history of end-stage renal disease on hemodialysis he presented emergency depart with complaint of shortness of breath he was diagnosed with COVID-19 4 days prior to coming to the emergency department patient was started on Decadron however patient is not a candidate for remdesivir and baricitinib due to end-stage renal disease on hemodialysis, today patient states is not a short of breath as when he arrived currently he has required 6 L of oxygen, he also has loose BM most likely secondary to COVID, will continue to monitor and goal is to wean the patient off oxygen, patient is seen by physician practice coordinator and will have scheduled dialysis. right hand dorsal expect patient has wound patient be seen by wound team and further recommendation to follow, will have a PT OT evaluate the patient. 04/14/2021 interval history today patient has developed fever and elevated white count suspect patient right hand wound is worsening patient is being treated with cefepime and vancomycin, blood and wound cultures no growth so far, will consult plastic surgeon for further recommendation, patient with COVID being treated with dexamethasone patient oxygen requirement has not changed, patient with end-stage renal disease on hemodialysis patient seen by Nephrology and will have scheduled dialysis will continue to monitor. 04/15/2021 interval history on 04/14 patient had developed fever and elevated white count, today patient has no fever and white counts are trending down, suspect patient right hand wound was worsening patient is being treated with cefepime and vancomycin, wound cultures is growing E coli, sensitivities pending, blood culture no growth so far, consulted plastic surgeon for further recommendation, patient was seen by the surgeon does not suspect the wound is worsening and does not need any surgical intervention, patient with COVID being treated with dexamethasone patient oxygen requirement has not changed, patient with end-stage renal disease on hemodialysis patient seen by Nephrology and will have scheduled dialysis will continue to monitor. 04/16/2021 interval history on 04/14 patient had developed fever and elevated white count, today patient has no fever and white counts are trending down, suspect patient right hand wound was worsening patient is being treated with cefepime and vancomycin, wound cultures is growing E coli, sensitivities to cefepime, blood culture no growth so far, was consulted plastic surgeon for further recommendation, patient was seen by the surgeon does not suspect the wound is worsening and does not need any surgical intervention, patient with COVID being treated with dexamethasone patient oxygen requirement has increased, to 12L, patient with end-stage renal disease on hemodialysis patient seen by Nephrology and will have scheduled dialysis will continue to monitor. (2) Pneumonia due to COVID-19 virus: Code(s): U07.1 - COVID-19; J12.82 - Pneumonia due to coronavirus disease 2018 Status: Acute (3) Hand ulceration: Qualifiers: Non-pressure ulcer stage: with fat layer exposed Qualified Code(s): L98.492 - Non-pressure chronic ulcer of skin of other sites with fat layer exposed Code(s): L98.499 - Non-pressure chronic ulcer of skin of other sites with unspecified severity Status: Acute (4) Obstructive sleep apnea: Code(s): G47.33 - Obstructive sleep apnea (adult) (pediatric) Status: Acute (5) Infected wound: Code(s): T14.8XXA - Other injury of unspecified body region, initial encounter; L08.9 - Local infection of the skin and subcutaneous tissue, unspecified Status: Acute (6) ESRD (end stage renal disease)
[2021-04-16 17:33] LABS: Glucose Point of Care 213 mg/dl (65-105)
[2021-04-16] MEDS: INSULIN ASPART (*BKC) 100 UNITS/ML SUB-Q (18:07)
--- NOTE | 2021-04-16 18:43 | WPDPN ---
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 improving. etiology unclear. Continue topical wound care Mepilex sponge dressing as needed or every other day (2) Infected wound: Code(s): T14.8XXA - Other injury of unspecified body region, initial encounter; L08.9 - Local infection of the skin and subcutaneous tissue, unspecified Status: Acute Assessment and Plan: infection resolved Additional Plan continue wound care Subjective Date/time seen: 04/16/21 12:43 the patient was more conversant today however he lay completely uncovered in his bed. Regarding the etiology of his right index finger wound he stated that he had had surgery on this finger. He could not tell me why he needed surgery. He thinks the surgery might have been done in [facility]. He does in the to the wound clinic. The finger remains essentially the same with no purulence. It is clear that there is no central extensor tendon there may be a small amount of bone exposed at that site but the joint does not appear to be open to air. . He demonstrates flexion but no extension of the digit there was no erythema no foul drainage. This wound should do well in the long run with topical Mepilex Silver sponge dressing every other day. I will continue to follow him while hospitalized Objective Data Vital Signs Vital Signs: Vital Signs - 24 hr 04/15/21 20:00 04/15/21 22:00 04/15/21 23:49 Temperature 100 F H 98.6 F Pulse Rate 106 H 102 H 105 H Respiratory Rate 22 H 20 Blood Pressure 88/51 L 95/53 L Pulse Oximetry 93 91 04/16/21 00:00 04/16/21 02:00 04/16/21 04:00 Temperature 97.8 F Pulse Rate 106 H 104 H 106 H Respiratory Rate 24 H Blood Pressure 111/76 Pulse Oximetry 91 97 04/16/21 06:00 04/16/21 08:00 04/16/21 10:00 Temperature 97.9 F Pulse Rate 104 H 95 99 Respiratory Rate 20 Blood Pressure 102/56 L Pulse Oximetry 90 04/16/21 10:30 04/16/21 12:00 04/16/21 14:00 Temperature 97.9 F Pulse Rate 98 99 Respiratory Rate 20 Blood Pressure 116/64 Pulse Oximetry 96 98 04/16/21 16:00 Temperature 98.4 F Pulse Rate 94 Respiratory Rate 20 Blood Pressure 116/68 Pulse Oximetry 92 Intake/Output Intake/Output: Intake & Output 04/13/21 04/14/21 04/15/21 04/16/21 23:59 23:59 23:59 23:59 Intake Total 640 350 420 560 Output Total 0 1936 900 Balance 858 784 -4940 -637 Meds/Results Medications: Active Medications Generic Name Dose Route Start Last Admin Trade Name Freq PRN Reason Stop Dose Admin Acetaminophen 650 mg 04/12/21 22:33 04/14/21 08:50 Acetaminophen 325 Mg Tablet PO 650 mg Q4H PRN Administration Mild Pain (1-3) or Fever Benzonatate 200 mg 04/13/21 05:12 04/16/21 10:05 Benzonatate 100 Mg Capsule PO 200 mg TID PRN Administration Cough Clopidogrel Bisulfate 75 mg 04/13/21 09:00 04/16/21 10:04 Clopidogrel Bisulfate 75 Mg Tablet PO 75 mg DAILY LOIDA Administration Collagenase 1 applic 04/13/21 09:00 04/16/21 10:04 Collagenase Oint 30 Gm Tube TOPICAL 1 applic DAILY LOIDA Administration Dextrose 12.5 gm 04/13/21 04:53 Dextrose 50% 25 Gm/50 Ml Syringe IV PUSH PRN PRN Hypoglycemia Protocol Fenofibrate 145 mg 04/13/21 09:00 04/16/21 10:04 Fenofibrate Nanocrystallized 145 Mg Tablet PO 145 mg DAILY LOIDA Administration Fluticasone Propionate 1 spray 04/13/21 04:51 Fluticasone Propionate 0.05% Na Spr 16 Gm Btl (*Bkc) NASAL DAILY PRN Congestion Glucagon 1 mg 04/13/21 04
[2021-04-16] MEDS: ROSUVASTATIN 10 MG TABLET PO (20:34)
[2021-04-16 21:13] LABS: Glucose Point of Care 153 mg/dl (65-105)
[2021-04-16] MEDS: CEFEPIME 0.5 GM in DEXTROSE 5% IN WATER 50 ML IVPB (22:41)
[2021-04-17] VITALS (30 sets, daily range): BP systolic 90–136; BP diastolic 31–67; PULSE 48–110; RESP 16–26; TEMP 35.9–36.6; O2SAT 92–100
[2021-04-17 08:50] LABS: Glucose Point of Care 138 mg/dl (65-105)
--- NOTE | 2021-04-17 11:50 | P.PNNP_ITS ---
Progress Note: A&P Assessment and Plan (1) ESRD (end stage renal disease): Code(s): N18.6 - End stage renal disease Status: Acute Assessment and Plan: * HD today and continue 3x/week treatments * due to HTN and diabetes * follow electrolytes, volume status, and clearance (2) COVID-19: Code(s): U07.1 - COVID-19 Status: Acute Assessment and Plan: * unfortunately, oxygen requirements have been increasing since admission * on antibiotic to cover for possible bacterial pneumonia * add decadron and/or remdesivir?? * follow respiratory status closely (3) Essential (primary) hypertension: Code(s): I10 - Essential (primary) hypertension Status: Acute Assessment and Plan: * reasonable control without medications * consider midodrine (4) EMILY (renal osteodystrophy): Code(s): N25.0 - Renal osteodystrophy Status: Acute Assessment and Plan: * unable to take Velphorio * will resume on discharge * unknown what binders he tolerated (5) Anemia in chronic kidney disease: Code(s): N18.9 - Chronic kidney disease, unspecified; D63.1 - Anemia in chronic kidney disease Status: Acute Assessment and Plan: * H/H supratherapeutic at this time * hold Epogen with HD treatments (6) Hand ulceration: Qualifiers: Non-pressure ulcer stage: with fat layer exposed Qualified Code(s): L98.492 - Non-pressure chronic 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 Subjective Date/time seen: 04/17/21 11:50 Tolerating dialysis treatment at the time of my visit (seen on HD at ~ 11:30AM); no apparent distress noted but states his cough seems a bit worse; remains hemodynamically stable; requiring more supplemental oxygen at this time but does not appear in any respiratory distress; no issues/events overnight or earlier this AM. Exam Narrative: General: WD/WN AA male in NAD Heart: normal S1 and S2; no rub Lungs: clear to auscultation Abdomen: soft, nontender, nondistended, positive bowel sounds Extremities: no cyanosis or clubbing; no edema; right hand dressings in place Skin: warm and intact Objective Data Vital Signs Vital Signs: Vital Signs Temp Pulse Resp BP Pulse Ox 04/17/21 11:50 36.3 C L 96 16 121/33 L 04/17/21 11:36 107 H 94/42 L 04/17/21 11:18 98 105/44 L 04/17/21 11:00 98 93/41 L 04/17/21 10:45 97 104/48 L 04/17/21 10:30 97 114/55 L 04/17/21 10:15 104 H 104/49 L 04/17/21 10:00 103 H 117/49 L 04/17/21 09:45 99 96/31 L 04/17/21 09:30 98 117/52 L 04/17/21 09:15 48 L 90/45 L 04/17/21 09:00 98 135/46 L 04/17/21 08:45 96 128/67 04/17/21 08:36 90 125/59 L 04/17/21 08:25 36.6 C 92 18 136/62 04/17/21 08:00 36.0 C L 97
--- NOTE | 2021-04-17 11:50 | PM.PNNEP ---
Progress Note: A&P Assessment and Plan (1) ESRD (end stage renal disease): Code(s): N18.6 - End stage renal disease Status: Acute Assessment and Plan: HD today and continue 3x/week treatments due to HTN and diabetes follow electrolytes, volume status, and clearance (2) COVID-19: Code(s): U07.1 - COVID-19 Status: Acute Assessment and Plan: unfortunately, oxygen requirements have been increasing since admission on antibiotic to cover for possible bacterial pneumonia add decadron and/or remdesivir?? follow respiratory status closely (3) Essential (primary) hypertension: Code(s): I10 - Essential (primary) hypertension Status: Acute Assessment and Plan: reasonable control without medications consider midodrine (4) EMILY (renal osteodystrophy): Code(s): N25.0 - Renal osteodystrophy Status: Acute Assessment and Plan: unable to take Velphorio will resume on discharge unknown what binders he tolerated (5) Anemia in chronic kidney disease: Code(s): N18.9 - Chronic kidney disease, unspecified; D63.1 - Anemia in chronic kidney disease Status: Acute Assessment and Plan: H/H supratherapeutic at this time hold Epogen with HD treatments (6) Hand ulceration: Qualifiers: Non-pressure ulcer stage: with fat layer exposed Qualified Code(s): L98.492 - Non-pressure chronic ulcer of skin of other sites with fat layer exposed Code(s): L98.499 - Non-pressure chronic ulcer of skin of other sites with unspecified severity Status: Acute Assessment and Plan: Plastic surgery following on antibiotics would cultures noted local care (7) Type 2 diabetes mellitus with diabetic nephropathy: Code(s): E11.21 - Type 2 diabetes mellitus with diabetic nephropathy Status: Acute Assessment and Plan: follow Accu-Cheks on sliding scale insulin Will continue to follow. Subjective Date/time seen: 04/17/21 11:50 Tolerating dialysis treatment at the time of my visit (seen on HD at ~ 11:30AM); no apparent distress noted but states his cough seems a bit worse; remains hemodynamically stable; requiring more supplemental oxygen at this time but does not appear in any respiratory distress; no issues/events overnight or earlier this AM. Exam Narrative: General: WD/WN AA male in NAD Heart: normal S1 and S2; no rub Lungs: clear to auscultation Abdomen: soft, nontender, nondistended, positive bowel sounds Extremities: no cyanosis or clubbing; no edema; right hand dressings in place Skin: warm and intact Objective Data Vital Signs Vital Signs: Vital Signs Temp Pulse Resp BP Pulse Ox 04/17/21 11:50 36.3 C L 96 16 121/33 L 04/17/21 11:36 107 H 94/42 L 04/17/21 11:18 98 105/44 L 04/17/21 11:00 98 93/41 L 04/17/21 10:45 97 104/48 L 04/17/21 10:30 97 114/55 L 04/17/21 10:15 104 H 104/49 L 04/17/21 10:00 103 H 117/49 L 04/17/21 09:45 99 96/31 L 04/17/21 09:30 98 117/52 L 04/17/21 09:15 48 L 90/45 L 04/17/21 09:00 98 135/46 L 04/17/21 08:45 96 128/67 04/17/21 08:36 90 125/59 L 04/17/21 08:25 36.6 C 92 18 136/62 04/17/21 08:00 36.0 C L 97 22 H 120/52 L 98 04/17/21 07:23 100 04/17/21 06:00 84 04/17/21 04:00 36.4 C L 95 22 H 110/53 L 100 04/17/21 02:00 87 04/17/21 00:00 84 97 04/16/21 23:57 36.5 C 90 20 118/85 97 04/16/21 22:00 91 04/16/21 20:00 36.3 C L 93 22 H 116/66 98 04/16/21 18:00 91 04/16/21 16:00 36.9 C 94 20 116/68 92 04/16/21 14:00 99 04/16/21 12:00 36.6 C 98 20 116/64 98 Intake/Output Intake/Output: Intake & Output 04/14/21 04/15/21 04/16/21 04/17/21 23:59 23:59 23:59 23:59 Intake Total 350 420 560 400 Output Total 0 1936 1200 350 Balance 863 -6971 -446 50 Meds/Results Medications: A
[2021-04-17 12:44] LABS: Glucose Point of Care 117 mg/dl (65-105)
--- NOTE | 2021-04-17 12:59 | WPDPN ---
Subjective Date/time seen: 04/17/21 12:59 Coughing more today. No pain in hand. Exam Narrative: Dressing changed. Wound healing as expected. MP joint not open. No extensor function. Dressing changes every two days with Mepilex Ag. Objective Data Vital Signs Vital Signs: Vital Signs - 24 hr 04/16/21 14:00 04/16/21 16:00 04/16/21 18:00 Temperature 98.4 F Pulse Rate 99 94 91 Respiratory Rate 20 Blood Pressure 116/68 Pulse Oximetry 92 04/16/21 20:00 04/16/21 22:00 04/16/21 23:57 Temperature 97.3 F L 97.7 F Pulse Rate 93 91 90 Respiratory Rate 22 H 20 Blood Pressure 116/66 118/85 Pulse Oximetry 98 97 04/17/21 00:00 04/17/21 02:00 04/17/21 04:00 Temperature 97.5 F L Pulse Rate 84 87 95 Respiratory Rate 22 H Blood Pressure 110/53 L Pulse Oximetry 97 100 04/17/21 06:00 04/17/21 07:23 04/17/21 08:00 Temperature 96.8 F L Pulse Rate 84 97 Respiratory Rate 22 H Blood Pressure 120/52 L Pulse Oximetry 100 98 04/17/21 08:25 04/17/21 08:36 04/17/21 08:45 Temperature 97.8 F Pulse Rate 92 90 96 Respiratory Rate 18 Blood Pressure 136/62 125/59 L 128/67 Pulse Oximetry 04/17/21 09:00 04/17/21 09:15 04/17/21 09:30 Temperature Pulse Rate 98 48 L 98 Respiratory Rate Blood Pressure 135/46 L 90/45 L 117/52 L Pulse Oximetry 04/17/21 09:45 04/17/21 10:00 04/17/21 10:15 Temperature Pulse Rate 99 103 H 104 H Respiratory Rate Blood Pressure 96/31 L 117/49 L 104/49 L Pulse Oximetry 04/17/21 10:30 04/17/21 10:45 04/17/21 11:00 Temperature Pulse Rate 97 97 98 Respiratory Rate Blood Pressure 114/55 L 104/48 L 93/41 L Pulse Oximetry 04/17/21 11:18 04/17/21 11:36 04/17/21 11:50 Temperature 97.4 F L Pulse Rate 98 107 H 96 Respiratory Rate 16 Blood Pressure 105/44 L 94/42 L 121/33 L Pulse Oximetry 04/17/21 12:00 04/17/21 12:30 Temperature 97 F L Pulse Rate 104 H 100 Respiratory Rate 24 H Blood Pressure 132/64 Pulse Oximetry 99 Intake/Output Intake/Output: Intake & Output 04/14/21 04/15/21 04/16/21 04/17/21 23:59 23:59 23:59 23:59 Intake Total 350 420 560 400 Output Total 0 1936 1200 2850 Balance 350 -1516 -007 -5990 Meds/Results Medications: Active Medications Generic Name Dose Route Start Last Admin Trade Name Freq PRN Reason Stop Dose Admin Acetaminophen 650 mg 04/12/21 22:33 04/14/21 08:50 Acetaminophen 325 Mg Tablet PO 650 mg Q4H PRN Administration Mild Pain (1-3) or Fever Benzonatate 200 mg 04/13/21 05:12 04/16/21 20:35 Benzonatate 100 Mg Capsule PO 200 mg TID PRN Administration Cough Clopidogrel Bisulfate 75 mg 04/13/21 09:00 04/16/21 10:04 Clopidogrel Bisulfate 75 Mg Tablet PO 75 mg DAILY LOIDA Administration Collagenase 1 applic 04/13/21 09:00 04/16/21 10:04 Collagenase Oint 30 Gm Tube TOPICAL 1 applic DAILY LOIDA Administration Dexamethasone Sodium Phosphate 10 mg 04/17/21 13:00 Dexamethasone Sod Phos Inj 10 Mg/Ml 1 Ml Vial IV PUSH 04/26/21 09:01 DAILY LOIDA Dextrose 12.5 gm 04/13/21 04:53 Dextrose 50% 25 Gm/50 Ml Syringe IV PUSH PRN PRN Hypoglycemia Protocol Fenofibrate 145 mg 04/13/21 09:00 04/16/21 10:04 Fenofibrate Nanocrystallized 145 Mg Tablet PO 145 mg DAILY LOIDA Administration Fluticasone Propionate 1 spray 04/13/21 04:51 Fluticasone Propionate 0.05% Na Spr 16 Gm Btl (*Bkc) NASAL DAILY PRN Congestion Glucagon 1 mg 04/13/21 04:53 Glucagon For Inj 1 Mg Vial IM PRN PRN Hypoglycemia Protocol Glucose 15 gm 04/13/21 04:53 Glucose Oral Gel 15 Gm Of Glucse In 37.5 Gm Tube PO PRN PRN Hypoglycemia Protocol Cefepime HCl 0.5 gm/ Dextrose 50 mls @ 100 mls/hr 04/13/21 22:00 04/17/21 08:04 IVPB Infused Q24H LOIDA Infusion Dextrose 1,000 mls @ 100 mls/hr 04/13/21 04:53 Dextrose 5% 1,000 Ml IVPB PRN PRN Hy
[2021-04-17] MEDS: BENZONATATE 100 MG CAPSULE 200 MG PO (13:27)
[2021-04-17] MEDS: COLLAGENASE OINT 30 GM TUBE 1 APPLIC TOPICAL (13:28)
[2021-04-17] MEDS: FENOFIBRATE NANOCRYSTALLIZED 145 MG TABLET PO (13:28)
[2021-04-17] MEDS: VITAMIN B CMPLX/VIT C/FOLIC AC 1 CAPSULE 1 CAP PO (13:28)
[2021-04-17] MEDS: CLOPIDOGREL BISULFATE 75 MG TABLET PO (13:28)
[2021-04-17] MEDS: PREGABALIN (*CRX) 75 MG CAPSULE 150 MG PO (13:31)
[2021-04-17 16:47] LABS: Hematocrit 41.3 % (42.0-52.0); Mean Corpuscular HGB Conc 33.9 g/dl (32-36); Mean Corpuscular Hemoglobin 27.4 pg (26-34); Mean Corpuscular Volume 80.8 fl (80-100); Mean Platelet Volume 12.2 fl (7.4-10.4); Platelet Count Result 246 k/mm3 (150-375); Red Blood Count 5.11 M/mm3 (4.6-6.20); Red Cell Distribution Width 15.8 % (11.5-14.5); White Blood Count 12.6 K/mm3 (4.5-10.0)
[2021-04-17 17:01] LABS: Albumin Level 3.4 g/dL (3.5-5.1); Anion Gap 20 mmol/L (8-16); Blood Urea Nitrogen 67 mg/dL (9-20); Calcium 8.6 mg/dL (8.4-10.2); Carbon Dioxide 23 mmol/L (22-30); Chloride 94 mmol/L (98-107); Estimated CRCL calculation 7 ml/min; Estimated Glomerular Filt Rate 5; Glucose 172 mg/dL (65-110); Potassium 3.2 mmol/L (3.4-5.0); Sodium 137 mmol/L (137-145)
[2021-04-17 17:25] LABS: Glucose Point of Care 178 mg/dl (65-105)
[2021-04-17] MEDS: ROSUVASTATIN 10 MG TABLET PO (20:17)
[2021-04-17 20:21] LABS: Glucose Point of Care 240 mg/dl (65-105)
[2021-04-17] MEDS: CEFEPIME 0.5 GM in DEXTROSE 5% IN WATER 50 ML IVPB (21:05)
[2021-04-17 21:07] LABS: Vancomycin Random 14.2 ug/mL (10-20)
[2021-04-18] VITALS (14 sets, daily range): BP systolic 100–122; BP diastolic 55–68; PULSE 74–105; RESP 16–20; TEMP 36.3–36.7; O2SAT 92–99
[2021-04-18 04:40] LABS: Hepatitis B Core Ab Total Nonreactive (Nonreactive)
[2021-04-18 05:19] LABS: Hematocrit 41.6 % (42.0-52.0); Hemoglobin 13.7 g/dL (14.0-18.0); Mean Corpuscular HGB Conc 32.9 g/dl (32-36); Mean Corpuscular Hemoglobin 27.3 pg (26-34); Mean Platelet Volume 12.5 fl (7.4-10.4); Platelet Count Result 247 k/mm3 (150-375); Red Blood Count 5.01 M/mm3 (4.6-6.20); Red Cell Distribution Width 16.3 % (11.5-14.5); White Blood Count 7.9 K/mm3 (4.5-10.0)
[2021-04-18 08:54] LABS: Glucose Point of Care 227 mg/dl (65-105)
[2021-04-18] MEDS: CLOPIDOGREL BISULFATE 75 MG TABLET PO (09:51)
[2021-04-18] MEDS: BENZONATATE 100 MG CAPSULE 200 MG PO ×2 (09:51→17:29)
[2021-04-18] MEDS: FENOFIBRATE NANOCRYSTALLIZED 145 MG TABLET PO (09:52)
[2021-04-18] MEDS: VITAMIN B CMPLX/VIT C/FOLIC AC 1 CAPSULE 1 CAP PO (09:52)
[2021-04-18] MEDS: PREGABALIN (*CRX) 75 MG CAPSULE 150 MG PO (09:55)
[2021-04-18] MEDS: INSULIN ASPART (*BKC) 100 UNITS/ML SUB-Q ×4 (09:55→22:58)
[2021-04-18] MEDS: COLLAGENASE OINT 30 GM TUBE 1 APPLIC TOPICAL (09:56)
[2021-04-18 11:33] LABS: Albumin Level 3.2 g/dL (3.5-5.1); Anion Gap 20 mmol/L (8-16); Blood Urea Nitrogen 86 mg/dL (9-20); Carbon Dioxide 21 mmol/L (22-30); Chloride 92 mmol/L (98-107); Estimated CRCL calculation 6 ml/min; Estimated Glomerular Filt Rate 4; Glucose 293 mg/dL (65-110); Phosphorus 9.8 mg/dL (2.5-4.5); Potassium 3.1 mmol/L (3.4-5.0); Sodium 133 mmol/L (137-145)
[2021-04-18 12:56] LABS: Glucose Point of Care 360 mg/dl (65-105)
--- NOTE | 2021-04-18 13:00 | PM.PNNEP ---
Progress Note: A&P Assessment and Plan (1) ESRD (end stage renal disease): Code(s): N18.6 - End stage renal disease Status: Acute Assessment and Plan: HD yesterday and continue 3x/week treatments due to HTN and diabetes follow electrolytes, volume status, and clearance (2) COVID-19: Code(s): U07.1 - COVID-19 Status: Acute Assessment and Plan: unfortunately, oxygen requirements have been increasing/fluctuating since admission on antibiotic to cover for possible bacterial pneumonia started decadron -- add remdesivir? follow respiratory status closely (3) Essential (primary) hypertension: Code(s): I10 - Essential (primary) hypertension Status: Acute Assessment and Plan: reasonable control without medications consider midodrine (4) EMILY (renal osteodystrophy): Code(s): N25.0 - Renal osteodystrophy Status: Acute Assessment and Plan: unable to take Velphorio will resume on discharge unknown what binders he tolerated (5) Anemia in chronic kidney disease: Code(s): N18.9 - Chronic kidney disease, unspecified; D63.1 - Anemia in chronic kidney disease Status: Acute Assessment and Plan: H/H supratherapeutic at this time hold Epogen with HD treatments (6) Hand ulceration: Qualifiers: Non-pressure ulcer stage: with fat layer exposed Qualified Code(s): L98.492 - Non-pressure chronic ulcer of skin of other sites with fat layer exposed Code(s): L98.499 - Non-pressure chronic ulcer of skin of other sites with unspecified severity Status: Acute Assessment and Plan: Plastic surgery following on antibiotics would cultures noted local care (7) Type 2 diabetes mellitus with diabetic nephropathy: Code(s): E11.21 - Type 2 diabetes mellitus with diabetic nephropathy Status: Acute Assessment and Plan: follow Accu-Cheks on sliding scale insulin Will continue to follow. Subjective Date/time seen: 04/18/21 13:00 Tolerated dialysis yesterday without any issue or problems; still requiring significant oxygen support at the time of my visit; however, he denies any shortness of breath or respiratory difficulties; no other issues/events overnight or earlier this AM. Exam Narrative: General: WD/WN AA male in NAD Heart: normal S1 and S2; no rub Lungs: clear to auscultation Abdomen: soft, nontender, nondistended, positive bowel sounds Extremities: no cyanosis or clubbing; no edema; right hand dressings in place Skin: no rash or nodules Objective Data Vital Signs Vital Signs: Vital Signs Temp Pulse Resp BP Pulse Ox 04/18/21 12:00 36.4 C L 83 20 101/62 94 04/18/21 10:00 94 04/18/21 08:00 36.3 C L 89 16 104/55 L 92 04/18/21 06:00 79 04/18/21 04:00 36.4 C L 86 20 122/68 97 04/18/21 02:32 92 04/18/21 02:00 93 04/18/21 00:00 105 H 97 04/17/21 23:32 36.1 C L 99 22 H 99/52 L 92 04/17/21 22:00 99 04/17/21 20:00 36.3 C L 104 H 24 H 105/56 L 97 Intake/Output Intake/Output: Intake & Output 04/15/21 04/16/21 04/17/21 04/18/21 23:59 23:59 23:59 23:59 Intake Total 738 723 1308 920 Output Total 1936 1200 2850 100 [facility] -[phone] -[phone] -[phone] Meds/Results Medications: Active Medications Generic Name Dose Route Start Last Admin Trade Name Amado PRN Reason Stop Dose Admin Acetaminophen 650 mg 04/12/21 22:33 04/14/21 08:50 Acetaminophen 325 Mg Tablet PO 650 mg Q4H PRN Administration Mild Pain (1-3) or Fever Benzonatate 200 mg 04/13/21 05:12 04/18/21 17:29 Benzonatate 100 Mg Capsule PO 200 mg TID PRN Administration Cough Clopidogrel Bisulfate 75 mg 04/13/21 09:00 04/18/21 09:51 Clopidogrel Bisulfate 75 Mg Tablet PO 75 mg DAILY LOIDA Administration Collagenase 1 applic 04/13/21 09:00 04/18/21 09:56 Collagenase Oint 30 Gm Tube TOPICAL
--- NOTE | 2021-04-18 13:00 | P.PNNP_ITS ---
Progress Note: A&P Assessment and Plan (1) ESRD (end stage renal disease): Code(s): N18.6 - End stage renal disease Status: Acute Assessment and Plan: * HD yesterday and continue 3x/week treatments * due to HTN and diabetes * follow electrolytes, volume status, and clearance (2) COVID-19: Code(s): U07.1 - COVID-19 Status: Acute Assessment and Plan: * unfortunately, oxygen requirements have been increasing/fluctuating since admission * on antibiotic to cover for possible bacterial pneumonia * started decadron -- add remdesivir? * follow respiratory status closely (3) Essential (primary) hypertension: Code(s): I10 - Essential (primary) hypertension Status: Acute Assessment and Plan: * reasonable control without medications * consider midodrine (4) EMILY (renal osteodystrophy): Code(s): N25.0 - Renal osteodystrophy Status: Acute Assessment and Plan: * unable to take Velphorio * will resume on discharge * unknown what binders he tolerated (5) Anemia in chronic kidney disease: Code(s): N18.9 - Chronic kidney disease, unspecified; D63.1 - Anemia in chronic kidney disease Status: Acute Assessment and Plan: * H/H supratherapeutic at this time * hold Epogen with HD treatments (6) Hand ulceration: Qualifiers: Non-pressure ulcer stage: with fat layer exposed Qualified Code(s): L98.492 - Non-pressure chronic 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 Subjective Date/time seen: 04/18/21 13:00 Tolerated dialysis yesterday without any issue or problems; still requiring significant oxygen support at the time of my visit; however, he denies any shortness of breath or respiratory difficulties; no other issues/events overnight or earlier this AM. Exam Narrative: General: WD/WN AA male in NAD Heart: normal S1 and S2; no rub Lungs: clear to auscultation Abdomen: soft, nontender, nondistended, positive bowel sounds Extremities: no cyanosis or clubbing; no edema; right hand dressings in place Skin: no rash or nodules Objective Data Vital Signs Vital Signs: Vital Signs Temp Pulse Resp BP Pulse Ox 04/18/21 12:00 36.4 C L 83 20 101/62 94 04/18/21 10:00 94 04/18/21 08:00 36.3 C L 89 16 104/55 L 92 04/18/21 06:00 79 04/18/21 04:00 36.4 C L 86 20 122/68 97 04/18/21 02:32 92 04/18/21 02:00 93 04/18/21 00:00 105 H 97 04/17/21 23:32 36.1 C L 99 22 H 99/52 L 92 04/17/21 22:00 99 04/17/21 20:00 36.3 C L 104 H 24 H 105/56 L 97 Intake/Output Intake/Output: Intake & Output 04/15/21 04/16/21 04/17/21 04/18/21 23:59 23:59 23:59 23:59 Intake Total 958 560 0110 920 Output Total 1936 120
--- NOTE | 2021-04-18 13:33 | PM.IMPN ---
Progress Note: A&P Assessment and Plan (1) Acute respiratory failure with hypoxia: Code(s): J96.01 - Acute respiratory failure with hypoxia Status: Acute Assessment and Plan: 04/13/2021 interval history: patient is a 55-year-old male with history of end-stage renal disease on hemodialysis he presented emergency depart with complaint of shortness of breath he was diagnosed with COVID-19 4 days prior to coming to the emergency department patient was started on Decadron however patient is not a candidate for remdesivir and baricitinib due to end-stage renal disease on hemodialysis, today patient states is not a short of breath as when he arrived currently he has required 6 L of oxygen, he also has loose BM most likely secondary to COVID, will continue to monitor and goal is to wean the patient off oxygen, patient is seen by operations supervisor 2nd shift and will have scheduled dialysis. right hand dorsal expect patient has wound patient be seen by wound team and further recommendation to follow, will have a PT OT evaluate the patient. 04/14/2021 interval history today patient has developed fever and elevated white count suspect patient right hand wound is worsening patient is being treated with cefepime and vancomycin, blood and wound cultures no growth so far, will consult plastic surgeon for further recommendation, patient with COVID being treated with dexamethasone patient oxygen requirement has not changed, patient with end-stage renal disease on hemodialysis patient seen by Nephrology and will have scheduled dialysis will continue to monitor. 04/15/2021 interval history on 04/14 patient had developed fever and elevated white count, today patient has no fever and white counts are trending down, suspect patient right hand wound was worsening patient is being treated with cefepime and vancomycin, wound cultures is growing E coli, sensitivities pending, blood culture no growth so far, consulted plastic surgeon for further recommendation, patient was seen by the surgeon does not suspect the wound is worsening and does not need any surgical intervention, patient with COVID being treated with dexamethasone patient oxygen requirement has not changed, patient with end-stage renal disease on hemodialysis patient seen by Nephrology and will have scheduled dialysis will continue to monitor. 04/16/2021 interval history on 04/14 patient had developed fever and elevated white count, today patient has no fever and white counts are trending down, suspect patient right hand wound was worsening patient is being treated with cefepime and vancomycin, wound cultures is growing E coli, sensitivities to cefepime, blood culture no growth so far, was consulted plastic surgeon for further recommendation, patient was seen by the surgeon does not suspect the wound is worsening and does not need any surgical intervention, patient with COVID being treated with dexamethasone patient oxygen requirement has increased, to 12L, patient with end-stage renal disease on hemodialysis patient seen by Nephrology and will have scheduled dialysis will continue to monitor. 04/17 interval history on 04/14 patient had developed fever and elevated white count, today patient has no fever and white counts are trending down, suspect patient right hand wound was worsening patient is being treated with cefepime and vancomycin, wound cultures is growing E coli, sensitivities to cefepime, blood culture no growth so far, was consulted plastic surgeon for further recommendation, patient was seen by the surgeon does not suspect the wound is worsening and does not need any surgical intervention, patient with COVID was treated with dexamethasone was stopped after ER dose and wan not resume, patient oxygen requirement has increased, to 12L, toady he requiring 15L will resume dexamathasone, 10mg qd.patient with end-stage renal disease on hemodialysis patient seen by Nephrology and will have sche
[2021-04-18 17:09] LABS: Glucose Point of Care 356 mg/dl (65-105)
[2021-04-18 21:45] LABS: Glucose Point of Care 292 mg/dl (65-105)
[2021-04-18] MEDS: CEFEPIME 0.5 GM in DEXTROSE 5% IN WATER 50 ML IVPB (21:45)
[2021-04-18] MEDS: ROSUVASTATIN 10 MG TABLET PO (21:45)
[2021-04-19] VITALS (11 sets, daily range): BP systolic 93–137; BP diastolic 50–96; PULSE 77–93; RESP 16–24; TEMP 36.2–37.1; O2SAT 89–100; BMI 36.2
--- NOTE | 2021-04-19 07:08 | P.PNNP_ITS ---
Progress Note: A&P Assessment and Plan (1) ESRD (end stage renal disease): Code(s): N18.6 - End stage renal disease Status: Acute Assessment and Plan: * HD yesterday and continue 3x/week treatments * Will get a dialysis tomorrow. Orders written. * due to HTN and diabetes * Volume status looks okay. He has no swelling. * Because of COVID will try to keep fluid off. * Potassium was low yesterday. Will check again in the morning. * Phosphorus level very high. Family not bring the L4 0 in. Will order sevelamer. Discussed with patient (2) COVID-19: Code(s): U07.1 - COVID-19 Status: Acute Assessment and Plan: * unfortunately, oxygen requirements have been increasing/fluctuating since admission * on antibiotic to cover for possible bacterial pneumonia * started decadron -- add remdesivir? * follow respiratory status closely (3) Essential (primary) hypertension: Code(s): I10 - Essential (primary) hypertension Status: Acute Assessment and Plan: * Systolic 100-140 * consider midodrine (4) EMILY (renal osteodystrophy): Code(s): N25.0 - Renal osteodystrophy Status: Acute Assessment and Plan: * unable to take Velphorio * will resume on discharge * I talked with patient. Will give him sevelamer (5) Anemia in chronic kidney disease: Code(s): N18.9 - Chronic kidney disease, unspecified; D63.1 - Anemia in chronic kidney disease Status: Acute Assessment and Plan: * H/H supratherapeutic at this time * hold Epogen with HD treatments (6) Hand ulceration: Qualifiers: Non-pressure ulcer stage: with fat layer exposed Qualified Code(s): L98.492 - Non-pressure chronic ulcer of skin of other sites with fat layer exposed Code(s): L98.499 - Non-pressure chronic ulcer of skin of other sites with unspecified severity Status: Acute Assessment and Plan: * Plastic surgery following * on antibiotics * would cultures noted * local care (7) Type 2 diabetes mellitus with diabetic nephropathy: Code(s): E11.21 - Type 2 diabetes mellitus with diabetic nephropathy Status: Acute Assessment and Plan: * On Accu-Cheks and sliding-scale insulin. * Management per hospitalist Will continue to follow. Subjective Date/time seen: 04/19/21 07:08 Interval history: Looks a little bit weaker today. Still on oxygen. He says his breathing is about the same. Exam Narrative: General: WD/WN AA male in NAD Heart: normal S1 and S2; no rub or gallop Lungs: clear to auscultation Abdomen: soft, nontender, nondistended, positive bowel sounds Extremities: no edema; right hand dressings in place Skin: no rash Objective Data Vital Signs Vital Signs: Vital Signs - 24 hr 04/18/21 08:00 04/18/21 10:00 04/18/21 12:00 Temperature 36.3 C L 36.4 C L Pulse Rate 89 94 83 Respiratory Rate 16 20 Blood Pressure 104/55 L 101/62 Pulse Oximetry 92 94 04/18/21 14:00 04/18/21 16:00 04/18/21 18:00 Temperature 36.7 C Pulse Rate 99 93 88 Respiratory Rate 16 Blood Pressure 101/62 Pulse Oximetry 95 04/18/21 19:29 04/18/21 20:00 04/18/21 22:00 Temperature 36.3 C L Pulse Rate 89 83 74 Respiratory Rate 16
--- NOTE | 2021-04-19 07:08 | PM.PNNEP ---
Progress Note: A&P Assessment and Plan (1) ESRD (end stage renal disease): Code(s): N18.6 - End stage renal disease Status: Acute Assessment and Plan: HD yesterday and continue 3x/week treatments Will get a dialysis tomorrow. Orders written. due to HTN and diabetes Volume status looks okay. He has no swelling. Because of COVID will try to keep fluid off. Potassium was low yesterday. Will check again in the morning. Phosphorus level very high. Family not bring the L4 0 in. Will order sevelamer. Discussed with patient (2) COVID-19: Code(s): U07.1 - COVID-19 Status: Acute Assessment and Plan: unfortunately, oxygen requirements have been increasing/fluctuating since admission on antibiotic to cover for possible bacterial pneumonia started decadron -- add remdesivir? follow respiratory status closely (3) Essential (primary) hypertension: Code(s): I10 - Essential (primary) hypertension Status: Acute Assessment and Plan: Systolic 100-140 consider midodrine (4) EMILY (renal osteodystrophy): Code(s): N25.0 - Renal osteodystrophy Status: Acute Assessment and Plan: unable to take Velphorio will resume on discharge I talked with patient. Will give him sevelamer (5) Anemia in chronic kidney disease: Code(s): N18.9 - Chronic kidney disease, unspecified; D63.1 - Anemia in chronic kidney disease Status: Acute Assessment and Plan: H/H supratherapeutic at this time hold Epogen with HD treatments (6) Hand ulceration: Qualifiers: Non-pressure ulcer stage: with fat layer exposed Qualified Code(s): L98.492 - Non-pressure chronic ulcer of skin of other sites with fat layer exposed Code(s): L98.499 - Non-pressure chronic ulcer of skin of other sites with unspecified severity Status: Acute Assessment and Plan: Plastic surgery following on antibiotics would cultures noted local care (7) Type 2 diabetes mellitus with diabetic nephropathy: Code(s): E11.21 - Type 2 diabetes mellitus with diabetic nephropathy Status: Acute Assessment and Plan: On Accu-Cheks and sliding-scale insulin. Management per hospitalist Will continue to follow. Subjective Date/time seen: 04/19/21 07:08 Interval history: Looks a little bit weaker today. Still on oxygen. He says his breathing is about the same. Exam Narrative: General: WD/WN AA male in NAD Heart: normal S1 and S2; no rub or gallop Lungs: clear to auscultation Abdomen: soft, nontender, nondistended, positive bowel sounds Extremities: no edema; right hand dressings in place Skin: no rash Objective Data Vital Signs Vital Signs: Vital Signs - 24 hr 04/18/21 08:00 04/18/21 10:00 04/18/21 12:00 Temperature 36.3 C L 36.4 C L Pulse Rate 89 94 83 Respiratory Rate 16 20 Blood Pressure 104/55 L 101/62 Pulse Oximetry 92 94 04/18/21 14:00 04/18/21 16:00 04/18/21 18:00 Temperature 36.7 C Pulse Rate 99 93 88 Respiratory Rate 16 Blood Pressure 101/62 Pulse Oximetry 95 04/18/21 19:29 04/18/21 20:00 04/18/21 22:00 Temperature 36.3 C L Pulse Rate 89 83 74 Respiratory Rate 16 Blood Pressure 100/56 L Pulse Oximetry 99 98 04/19/21 00:00 04/19/21 00:05 04/19/21 02:00 Temperature 36.6 C Pulse Rate 85 93 77 Respiratory Rate 16 Blood Pressure 114/69 Pulse Oximetry 98 97 04/19/21 04:00 04/19/21 06:00 Temperature 37.1 C Pulse Rate 78 86 Respiratory Rate 22 H Blood Pressure 137/96 H Pulse Oximetry 93 Intake/Output Intake/Output: Intake & Output 04/16/21 04/17/21 04/18/21 04/19/21 23:59 23:59 23:59 23:59 Intake Total 560 1170 1370 50 Output Total 1200 2850 150 0 Balance -640 -1680 1220 50 Meds/Results Medications: Active Medications Generic Name Dose Route Start Last Admin Trade Name Freq PRN Reason Stop Dose Admin Acetaminophen
[2021-04-19] MEDS: SEVELAMER CARBONATE 800 MG TABLET 2400 MG PO ×3 (08:46→17:32)
[2021-04-19] MEDS: PREGABALIN (*CRX) 75 MG CAPSULE 150 MG PO (08:46)
[2021-04-19] MEDS: CLOPIDOGREL BISULFATE 75 MG TABLET PO (08:46)
[2021-04-19] MEDS: FENOFIBRATE NANOCRYSTALLIZED 145 MG TABLET PO (08:47)
[2021-04-19] MEDS: VITAMIN B CMPLX/VIT C/FOLIC AC 1 CAPSULE 1 CAP PO (08:47)
[2021-04-19 09:17] LABS: Glucose Point of Care 188 mg/dl (65-105)
[2021-04-19] MEDS: INSULIN ASPART (*BKC) 100 UNITS/ML SUB-Q ×3 (12:50→22:14)
[2021-04-19] MEDS: COLLAGENASE OINT 30 GM TUBE 1 APPLIC TOPICAL (12:51)
[2021-04-19 13:13] LABS: Glucose Point of Care 313 mg/dl (65-105)
[2021-04-19 14:43] LABS: Hematocrit 41.7 % (42.0-52.0); Hemoglobin 13.9 g/dL (14.0-18.0); Immature Platelet Fraction Pct 7.1 % (0.9-11.2); Mean Corpuscular HGB Conc 33.3 g/dl (32-36); Mean Corpuscular Hemoglobin 27.3 pg (26-34); Mean Corpuscular Volume 81.9 fl (80-100); Mean Platelet Volume 13.2 fl (7.4-10.4); Platelet Count Result 258 k/mm3 (150-375); Red Blood Count 5.09 M/mm3 (4.6-6.20); White Blood Count 8.4 K/mm3 (4.5-10.0)
[2021-04-19 15:15] LABS: Anion Gap 20 mmol/L (8-16); Blood Urea Nitrogen 115 mg/dL (9-20); Calcium 8.9 mg/dL (8.4-10.2); Carbon Dioxide 16 mmol/L (22-30); Chloride 93 mmol/L (98-107); Estimated CRCL calculation 6 ml/min; Estimated Glomerular Filt Rate 4; Glucose 352 mg/dL (65-110); Phosphorus 11.6 mg/dL (2.5-4.5); Potassium 3.8 mmol/L (3.4-5.0); Sodium 129 mmol/L (137-145)
--- NOTE | 2021-04-19 16:47 | P.PNIM_ITS ---
Progress Note: A&P Assessment and Plan (1) Acute respiratory failure with hypoxia: Code(s): J96.01 - Acute respiratory failure with hypoxia Status: Acute Assessment and Plan: 04/13/2021 interval history: patient is a 55-year-old male with history of end-stage renal disease on hemodialysis he presented emergency depart with complaint of shortness of breath he was diagnosed with COVID-19 4 days prior to coming to the emergency department patient was started on Decadron however patient is not a candidate for remdesivir and baricitinib due to end- stage renal disease on hemodialysis, today patient states is not a short of breath as when he arrived currently he has required 6 L of oxygen, he also has loose BM most likely secondary to COVID, will continue to monitor and goal is to wean the patient off oxygen, patient is seen by adjunct political science instructor and will have scheduled dialysis. right hand dorsal expect patient has wound patient be seen by wound team and further recommendation to follow, will have a PT OT evaluate the patient. 04/14/2021 interval history today patient has developed fever and elevated white count suspect patient right hand wound is worsening patient is being treated with cefepime and vancomycin, blood and wound cultures no growth so far, will consult plastic surgeon for further recommendation, patient with COVID being treated with dexamethasone patient oxygen requirement has not changed, patient with end-stage renal disease on hemodialysis patient seen by Nephrology and will have scheduled dialysis will continue to monitor. 04/15/2021 interval history on 04/14 patient had developed fever and elevated white count, today patient has no fever and white counts are trending down, suspect patient right hand wound was worsening patient is being treated with cefepime and vancomycin, wound cultures is growing E coli, sensitivities pending, blood culture no growth so far, consulted plastic surgeon for further recommendation, patient was seen by the surgeon does not suspect the wound is worsening and does not need any surgical intervention, patient with COVID being treated with dexamethasone patient oxygen requirement has not changed, patient with end-stage renal disease on hemodialysis patient seen by Nephrology and will have scheduled dialysis will continue to monitor. 04/16/2021 interval history on 04/14 patient had developed fever and elevated white count, today patient has no fever and white counts are trending down, suspect patient right hand wound was worsening patient is being treated with cefepime and vancomycin, wound cultures is growing E coli, sensitivities to cefepime, blood culture no growth so far, was consulted plastic surgeon for furt her recommendation, patient was seen by the surgeon does not suspect the wound is worsening and does not need any surgical intervention, patient with COVID being treated with dexamethasone patient oxygen requirement has increased, to 12L, patient with end-stage renal disease on hemodialysis patient seen by Nephrology and will have scheduled dialysis will continue to monitor. 04/17 interval history on 04/14 patient had developed fever and elevated white count, today patient has no fever and white counts are trending down, suspect patient right hand wound was worsening patient is being treated with cefepime and vancomycin, wound cultures is growing E coli, sensitivities to cefepime, blood culture no growth so far, was consulted plastic surgeon for further recommendation, patient was seen by the surgeon does not suspect the wound is worsening and does not need any surgical intervention, patient with COVID was treated with dexamethasone was stopped after ER dose and wan not resume, patient
[2021-04-19 17:19] LABS: Glucose Point of Care 327 mg/dl (65-105)
[2021-04-19 21:08] LABS: Glucose Point of Care 353 mg/dl (65-105)
[2021-04-19] MEDS: ROSUVASTATIN 10 MG TABLET PO (21:47)
[2021-04-19] MEDS: CEFEPIME 0.5 GM in DEXTROSE 5% IN WATER 50 ML IVPB (21:47)
[2021-04-20] VITALS (22 sets, daily range): BP systolic 92–149; BP diastolic 26–113; PULSE 79–111; RESP 16–20; TEMP 35.8–37; O2SAT 93–96
[2021-04-20 05:02] LABS: Hematocrit 41.9 % (42.0-52.0); Hemoglobin 14.2 g/dL (14.0-18.0); Mean Corpuscular HGB Conc 33.9 g/dl (32-36); Mean Corpuscular Hemoglobin 27.1 pg (26-34); Mean Platelet Volume 12.8 fl (7.4-10.4); Platelet Count Result 334 k/mm3 (150-375); Red Blood Count 5.24 M/mm3 (4.6-6.20); Red Cell Distribution Width 15.6 % (11.5-14.5); White Blood Count 11.5 K/mm3 (4.5-10.0)
[2021-04-20 05:23] LABS: Albumin Level 3.5 g/dL (3.5-5.1); Anion Gap 18 mmol/L (8-16); Calcium 9.5 mg/dL (8.4-10.2); Carbon Dioxide 21 mmol/L (22-30); Chloride 94 mmol/L (98-107); Estimated CRCL calculation 5 ml/min; Estimated Glomerular Filt Rate 3; Glucose 167 mg/dL (65-110); Phosphorus 12.3 mg/dL (2.5-4.5); Potassium 3.8 mmol/L (3.4-5.0); Sodium 133 mmol/L (137-145)
[2021-04-20 05:53] LABS: Blood Urea Nitrogen 138 mg/dL (9-20)
--- NOTE | 2021-04-20 06:58 | P.PNNP_ITS ---
Progress Note: A&P Assessment and Plan (1) ESRD (end stage renal disease): Code(s): N18.6 - End stage renal disease Status: Acute Assessment and Plan: * HD yesterday and continue 3x/week treatments * Will get a dialysis later today * due to HTN and diabetes * Volume status looks okay. He has no swelling. * Because of COVID will try to keep fluid off. * Potassium is okay today. * BUN creatinine are very high. He is very catabolic. * When ready for discharge, he will just do his home dialysis so would not need a COVID unit. (2) COVID-19: Code(s): U07.1 - COVID-19 Status: Acute Assessment and Plan: * unfortunately, oxygen requirements have been increasing/fluctuating since admission * on antibiotic to cover for possible bacterial pneumonia * started decadron * Off oxygen now. * Moving to the 3rd floor. (3) Essential (primary) hypertension: Code(s): I10 - Essential (primary) hypertension Status: Acute Assessment and Plan: * Systolic 100-140 * consider midodrine (4) EMILY (renal osteodystrophy): Code(s): N25.0 - Renal osteodystrophy Status: Acute Assessment and Plan: * unable to take Velphorio * will resume on discharge * Sevelamer while here (5) Anemia in chronic kidney disease: Code(s): N18.9 - Chronic kidney disease, unspecified; D63.1 - Anemia in chronic kidney disease Status: Acute Assessment and Plan: * Hemoglobin 14.2 * hold Epogen with HD treatments (6) Hand ulceration: Qualifiers: Non-pressure ulcer stage: with fat layer exposed Qualified Code(s): L98.492 - Non-pressure chronic ulcer of skin of other sites with fat layer exposed Code(s): L98.499 - Non-pressure chronic ulcer of skin of other sites with unspecified severity Status: Acute Assessment and Plan: * Plastic surgery following * on antibiotics * would cultures noted * local care (7) Type 2 diabetes mellitus with diabetic nephropathy: Code(s): E11.21 - Type 2 diabetes mellitus with diabetic nephropathy Status: Acute Assessment and Plan: * On Accu-Cheks and sliding-scale insulin. * Management per hospitalist Will continue to follow. Subjective Date/time seen: 04/20/21 06:58 Interval history: Looks much better today. He feels stronger. Oxygen discontinued. Breathing is better Due for dialysis today Exam Narrative: General: WD/WN AA male in NAD Heart: normal S1 and S2; no rub Lungs: clear Abdomen: soft, nontender, nondistended, positive bowel sounds Extremities: no edema; right hand dressings in place Skin: no rash or subQ nodules Objective Data Vital Signs Vital Signs: Vital Signs - 24 hr 04/19/21 08:00 04/19/21 10:00 04/19/21 12:00 Temperature 36.2 C L 36.2 C L Pulse Rate 87 85 84 Respiratory Rate 24 H 24 H Blood Pressure 115/66 93/50 L Pulse Oximetry 95 89 L 04/19/21 16:00 04/19/21 20:00 04/19/21 23:34 Temperature 36.3 C L 36.9 C 36.5 C Pulse Rate 87 89 91 Respiratory Rate 24 H 22 H 22 H Blood Pressure 116/60 122/55 L 117/72 Pulse Oximetry 93 95 93 04/20/21 00:00 04/20/21 04:00 Temperature 36.6 C Pulse Rate 85 93 Respiratory Rate 20 Blood Pr
--- NOTE | 2021-04-20 06:58 | PM.PNNEP ---
Progress Note: A&P Assessment and Plan (1) ESRD (end stage renal disease): Code(s): N18.6 - End stage renal disease Status: Acute Assessment and Plan: HD yesterday and continue 3x/week treatments Will get a dialysis later today due to HTN and diabetes Volume status looks okay. He has no swelling. Because of COVID will try to keep fluid off. Potassium is okay today. BUN creatinine are very high. He is very catabolic. When ready for discharge, he will just do his home dialysis so would not need a COVID unit. (2) COVID-19: Code(s): U07.1 - COVID-19 Status: Acute Assessment and Plan: unfortunately, oxygen requirements have been increasing/fluctuating since admission on antibiotic to cover for possible bacterial pneumonia started decadron Off oxygen now. Moving to the 3rd floor. (3) Essential (primary) hypertension: Code(s): I10 - Essential (primary) hypertension Status: Acute Assessment and Plan: Systolic 100-140 consider midodrine (4) EMILY (renal osteodystrophy): Code(s): N25.0 - Renal osteodystrophy Status: Acute Assessment and Plan: unable to take Velphorio will resume on discharge Sevelamer while here (5) Anemia in chronic kidney disease: Code(s): N18.9 - Chronic kidney disease, unspecified; D63.1 - Anemia in chronic kidney disease Status: Acute Assessment and Plan: Hemoglobin 14.2 hold Epogen with HD treatments (6) Hand ulceration: Qualifiers: Non-pressure ulcer stage: with fat layer exposed Qualified Code(s): L98.492 - Non-pressure chronic ulcer of skin of other sites with fat layer exposed Code(s): L98.499 - Non-pressure chronic ulcer of skin of other sites with unspecified severity Status: Acute Assessment and Plan: Plastic surgery following on antibiotics would cultures noted local care (7) Type 2 diabetes mellitus with diabetic nephropathy: Code(s): E11.21 - Type 2 diabetes mellitus with diabetic nephropathy Status: Acute Assessment and Plan: On Accu-Cheks and sliding-scale insulin. Management per hospitalist Will continue to follow. Subjective Date/time seen: 04/20/21 06:58 Interval history: Looks much better today. He feels stronger. Oxygen discontinued. Breathing is better Due for dialysis today Exam Narrative: General: WD/WN AA male in NAD Heart: normal S1 and S2; no rub Lungs: clear Abdomen: soft, nontender, nondistended, positive bowel sounds Extremities: no edema; right hand dressings in place Skin: no rash or subQ nodules Objective Data Vital Signs Vital Signs: Vital Signs - 24 hr 04/19/21 08:00 04/19/21 10:00 04/19/21 12:00 Temperature 36.2 C L 36.2 C L Pulse Rate 87 85 84 Respiratory Rate 24 H 24 H Blood Pressure 115/66 93/50 L Pulse Oximetry 95 89 L 04/19/21 16:00 04/19/21 20:00 04/19/21 23:34 Temperature 36.3 C L 36.9 C 36.5 C Pulse Rate 87 89 91 Respiratory Rate 24 H 22 H 22 H Blood Pressure 116/60 122/55 L 117/72 Pulse Oximetry 93 95 93 04/20/21 00:00 04/20/21 04:00 Temperature 36.6 C Pulse Rate 85 93 Respiratory Rate 20 Blood Pressure 109/63 Pulse Oximetry 96 Intake/Output Intake/Output: Intake & Output 04/17/21 04/18/21 04/19/21 04/20/21 23:59 23:59 23:59 23:59 Intake Total 1170 1370 1580 Output Total 2850 150 0 0 Balance -1680 1220 1580 0 Meds/Results Medications: Active Medications Generic Name Dose Route Start Last Admin Trade Name Freq PRN Reason Stop Dose Admin Acetaminophen 650 mg 04/12/21 22:33 04/14/21 08:50 Acetaminophen 325 Mg Tablet PO 650 mg Q4H PRN Administration Mild Pain (1-3) or Fever Benzonatate 200 mg 04/13/21 05:12 04/18/21 17:29 Benzonatate 100 Mg Capsule PO 200 mg TID PRN Administration Cough Clopidogrel Bisulfate 75 mg 04/13/21 09:00 04/19/21 08:46 Clopidogrel Bi
--- NOTE | 2021-04-20 08:02 | PC.NURSE ---
This patient, Yoshi Collins, [facility] on [facility]20[facility]21 at 0750. Personal belongings sent with patient. Report given to [Renetta ]. Appropriate documentation sent with patient.
[2021-04-20 08:03] LABS: Glucose Point of Care 145 mg/dl (65-105)
[2021-04-20] MEDS: HEPARIN SODIUM 1,000 UNITS/ML VIAL 1000 UNITS IV PUSH (09:08)
[2021-04-20] MEDS: HEPARIN SODIUM 1,000 UNITS/ML VIAL 500 UNITS IV PUSH ×2 (09:09→09:10)
[2021-04-20] MEDS: SODIUM CHLORIDE 0.9% IV 1,000 ML 999 ML IV CONT ×2 (09:09)
--- NOTE | 2021-04-20 11:32 | PCOTNOTE ---
Patient out of room for dialysis this AM. Will attempt to see for OT this PM.
--- NOTE | 2021-04-20 11:51 | PM.IMPN ---
Progress Note: A&P Assessment and Plan (1) Acute respiratory failure with hypoxia: Code(s): J96.01 - Acute respiratory failure with hypoxia Status: Acute Assessment and Plan: Secondary to COVID-19 pneumonia treated with IV doxycycline oxygen wean off oxygen (2) Pneumonia due to COVID-19 virus: Code(s): U07.1 - COVID-19; J12.82 - Pneumonia due to coronavirus disease 2018 Status: Acute Assessment and Plan: Status post dexamethasone (3) Hand ulceration: Qualifiers: Non-pressure ulcer stage: with fat layer exposed Qualified Code(s): L98.492 - Non-pressure chronic ulcer of skin of other sites with fat layer exposed Code(s): L98.499 - Non-pressure chronic ulcer of skin of other sites with unspecified severity Status: Acute Assessment and Plan: Plastic surgeon recommendation appreciated Associated with cellulitis of the hand treated with IV antibiotics secondary to E coli sensitive to cefepime (4) Obstructive sleep apnea: Code(s): G47.33 - Obstructive sleep apnea (adult) (pediatric) Status: Acute Assessment and Plan: Resume home treatment (5) Infected wound: Code(s): T14.8XXA - Other injury of unspecified body region, initial encounter; L08.9 - Local infection of the skin and subcutaneous tissue, unspecified Status: Acute Assessment and Plan: Management as above (6) ESRD (end stage renal disease): Code(s): N18.6 - End stage renal disease Status: Acute Assessment and Plan: Nephrology following on dialysis Additional Plan . Subjective Date/time seen: 04/20/21 11:51 Interval history: patient is a 55-year-old male with history of end-stage renal disease on hemodialysis he presented emergency depart with complaint of shortness of breath he was diagnosed with COVID-19 4 days prior to coming to the emergency department patient was started on Decadron however patient is not a candidate for remdesivir and baricitinib due to end-stage renal disease on hemodialysis, patient also has right hand dorsal expect patient has wound patient be seen by wound team and further recommendation to follow, during hospitalization patient developed fever and elevated white count suspect patient right hand wound is worsening patient is being treated with cefepime and vancomycin, blood and wound cultures no growth so far, consult plastic surgeon for further recommendation, wound cultures is growing E patient was seen by the surgeon does wound cultures is growing E coli, sensitivities to cefepime, blood culture no growth so far, was consulted plastic surgeon for further recommendation,he was requiring 15L resumeed dexamathasone, currently patient is requiring 4 L of oxygen Patient feels weak Patient denies fever headache chest pain I am seeing the patient for COVID-19 Exam Narrative: morbidly obese Patient is comfortable, NAD HEENT: eyes are clear and none icteric LUNGS: normal respiratory effort ABD: obese distended Lower extremities: no edema, right hand dorsal expect patient has wound no swelling no redness SKIN: nonjaundiced Neuro: grossly intact. Objective Data Vital Signs Vital Signs: Vital Signs - 24 hr 04/19/21 12:00 04/19/21 16:00 04/19/21 20:00 Temperature 97.2 F L 97.4 F L 98.5 F Pulse Rate 84 87 89 Respiratory Rate 24 H 24 H 22 H Blood Pressure 93/50 L 116/60 122/55 L Pulse Oximetry 89 L 93 95 04/19/21 23:34 04/20/21 00:00 04/20/21 04:00 Temperature 97.7 F 97.8 F Pulse Rate 91 85 93 Respiratory Rate 22 H 20 Blood Pressure 117/72 109/63 Pulse Oximetry 93 96 04/20/21 08:00 04/20/21 08:25 04/20/21 08:34 Temperature 97.6 F Pulse Rate 83 81 84 Respiratory Rate 16 Blood Pressure 133/57 L 135/58 L Pulse Oximetry 04/20/21 08:45 04/20/21 09:00 04/20/21 09:15 Temperature Pulse Rate 79 81 92 Respiratory Rate Blood Pressure 130/64 109/37 L 149/40 H Puls
[2021-04-20] MEDS: COLLAGENASE OINT 30 GM TUBE 1 APPLIC TOPICAL (11:54)
[2021-04-20] MEDS: SEVELAMER CARBONATE 800 MG TABLET 2400 MG PO ×2 (11:54→16:35)
[2021-04-20 12:03] LABS: Glucose Point of Care 106 mg/dl (65-105)
[2021-04-20] MEDS: cefTRIAXone 2 GM in SODIUM CHLORIDE 0.9% IV 100 ML 200 ML IVPB (12:46)
--- NOTE | 2021-04-20 13:49 | PC.NURSE ---
Pt received dialysis today, tolerated tx well, 1.5 L removed per report.
[2021-04-20] MEDS: INSULIN ASPART (*BKC) 100 UNITS/ML SUB-Q (16:52)
[2021-04-20 16:54] LABS: Glucose Point of Care 214 mg/dl (65-105)
--- NOTE | 2021-04-20 17:52 | PC.NURSE ---
This patient, Yoshi Collins, was transfered to [address] [place] [address] Room 321-02 at 750. Patient/family oriented to hospital policies and general routines including ID bracelet, bed and alarms, visiting hours, pain management, procedures, bathroom and other care routines, personal items, smoking policy, room service/diet, and visiting hours. Information on how to activate the Rapid Response Team has been discussed. Patient/Family are encouraged to report perceived risks to care and to ask questions if they do not understand what they are told or what they should do.
--- NOTE | 2021-04-20 19:25 | WPDPN ---
Progress Note: A&P Assessment and Plan (1) Hand ulceration: Qualifiers: Non-pressure ulcer stage: with fat layer exposed Qualified Code(s): L98.492 - Non-pressure chronic ulcer of skin of other sites with fat layer exposed Code(s): L98.499 - Non-pressure chronic ulcer of skin of other sites with unspecified severity Status: Acute Assessment and Plan: Continue current care. Subjective Date/time seen: 04/20/21 19:25 Stopped by to ask pt how he is doing. Says well. Says his finger is not painful. Mepilex bandage is well applied. He showed me how he can not extend the finger.. I did not change the bandage tonight. Objective Data Vital Signs Vital Signs: Vital Signs - 24 hr 04/19/21 20:00 04/19/21 23:34 04/20/21 00:00 Temperature 98.5 F 97.7 F Pulse Rate 89 91 85 Respiratory Rate 22 H 22 H Blood Pressure 122/55 L 117/72 Pulse Oximetry 95 93 04/20/21 04:00 04/20/21 08:00 04/20/21 08:25 Temperature 97.8 F 97.6 F Pulse Rate 93 83 81 Respiratory Rate 20 16 Blood Pressure 109/63 133/57 L Pulse Oximetry 96 04/20/21 08:34 04/20/21 08:45 04/20/21 09:00 Temperature Pulse Rate 84 79 81 Respiratory Rate Blood Pressure 135/58 L 130/64 109/37 L Pulse Oximetry 04/20/21 09:15 04/20/21 09:30 04/20/21 09:45 Temperature Pulse Rate 92 107 H 111 H Respiratory Rate Blood Pressure 149/40 H 136/30 L 109/66 Pulse Oximetry 04/20/21 10:00 04/20/21 10:15 04/20/21 10:30 Temperature Pulse Rate 94 92 85 Respiratory Rate Blood Pressure 134/113 H 120/97 H 100/49 L Pulse Oximetry 04/20/21 10:45 04/20/21 11:00 04/20/21 11:15 Temperature Pulse Rate 84 81 87 Respiratory Rate Blood Pressure 93/44 L 108/54 L 97/44 L Pulse Oximetry 04/20/21 11:25 04/20/21 11:37 04/20/21 12:00 Temperature 97.3 F L Pulse Rate 94 93 96 Respiratory Rate 16 Blood Pressure 92/26 L 114/31 L Pulse Oximetry 04/20/21 13:00 04/20/21 14:00 Temperature 97.0 F L Pulse Rate 96 101 H Respiratory Rate 16 20 Blood Pressure 110/54 L Pulse Oximetry 96 Intake/Output Intake/Output: Intake & Output 04/17/21 04/18/21 04/19/21 04/20/21 23:59 23:59 23:59 23:59 Intake Total 1170 1370 1580 100 Output Total 2850 150 0 1176 Balance -1680 1220 1580 -1076 Meds/Results Medications: Active Medications Generic Name Dose Route Start Last Admin Trade Name Freq PRN Reason Stop Dose Admin Acetaminophen 650 mg 04/12/21 22:33 04/14/21 08:50 Acetaminophen 325 Mg Tablet PO 650 mg Q4H PRN Administration Mild Pain (1-3) or Fever Benzonatate 200 mg 04/13/21 05:12 04/18/21 17:29 Benzonatate 100 Mg Capsule PO 200 mg TID PRN Administration Cough Clopidogrel Bisulfate 75 mg 04/13/21 09:00 04/20/21 09:07 Clopidogrel Bisulfate 75 Mg Tablet PO Not Given DAILY LOIDA Collagenase 1 applic 04/13/21 09:00 04/20/21 11:54 Collagenase Oint 30 Gm Tube TOPICAL 1 applic DAILY LOIDA Administration Dexamethasone Sodium Phosphate 10 mg 04/17/21 13:00 04/20/21 11:54 Dexamethasone Sod Phos Inj 10 Mg/Ml 1 Ml Vial IV PUSH 04/26/21 09:01 10 mg DAILY LOIDA Administration Dextrose 12.5 gm 04/13/21 04:53 Dextrose 50% 25 Gm/50 Ml Syringe IV PUSH PRN PRN Hypoglycemia Protocol Fenofibrate 145 mg 04/13/21 09:00 04/20/21 09:07 Fenofibrate Nanocrystallized 145 Mg Tablet PO Not Given DAILY LOIDA Fluticasone Propionate 1 spray 04/13/21 04:51 Fluticasone Propionate 0.05% Na Spr 16 Gm Btl (*Bkc) NASAL DAILY PRN Congestion Glucagon 1 mg 04/13/21 04:53 Glucagon For Inj 1 Mg Vial IM PRN PRN Hypoglycemia Protocol Glucose 15 gm 04/13/21 04:53 Glucose Oral Gel 15 Gm Of Glucse In 37.5 Gm Tube PO PRN PRN Hypoglycemia Protocol Dextrose 1,000 mls @ 100 mls/hr 04/13/21 04:53 Dextrose 5% 1,000 Ml IVPB PRN PRN Hypoglycemia Protocol Ce
[2021-04-20] MEDS: ROSUVASTATIN 10 MG TABLET PO (20:46)
[2021-04-20 22:43] LABS: Glucose Point of Care 362 mg/dl (65-105)
[2021-04-21] VITALS: BP 106/60; PULSE 90; RESP 16; TEMP 36.4; O2SAT 90
[2021-04-21 01:00] VITALS: PULSE 89; RESP 18; O2SAT 92
[2021-04-21 04:00] VITALS: BP 104/58; PULSE 89; RESP 18; TEMP 36.5; O2SAT 92
[2021-04-21 08:00] VITALS: BP 118/64; PULSE 95; RESP 18; TEMP 36.2; O2SAT 94
[2021-04-21 08:08] LABS: Hematocrit 40.7 % (42.0-52.0); Hemoglobin 13.4 g/dL (14.0-18.0); Immature Platelet Fraction Pct 9.6 % (0.9-11.2); Mean Corpuscular HGB Conc 32.9 g/dl (32-36); Mean Corpuscular Hemoglobin 26.6 pg (26-34); Mean Corpuscular Volume 80.9 fl (80-100); Mean Platelet Volume 12.3 fl (7.4-10.4); Platelet Count Result 281 k/mm3 (150-375); Red Blood Count 5.03 M/mm3 (4.6-6.20); Red Cell Distribution Width 15.8 % (11.5-14.5); White Blood Count 13.2 K/mm3 (4.5-10.0)
[2021-04-21 08:32] LABS: Glucose Point of Care 133 mg/dl (65-105)
[2021-04-21] MEDS: FLUTICASONE PROPIONATE 0.05% NA SPR 16 GM BTL (*BKC) 1 SPRAY NASAL (09:00)
[2021-04-21] MEDS: SEVELAMER CARBONATE 800 MG TABLET 2400 MG PO (09:00)
[2021-04-21] MEDS: BENZONATATE 100 MG CAPSULE 200 MG PO (09:01)
[2021-04-21] MEDS: COLLAGENASE OINT 30 GM TUBE 1 APPLIC TOPICAL (09:01)
[2021-04-21] MEDS: PREGABALIN (*CRX) 75 MG CAPSULE 150 MG PO (09:01)
[2021-04-21 09:46] LABS: Albumin Level 2.9 g/dL (3.5-5.1); Anion Gap 16 mmol/L (8-16); Blood Urea Nitrogen 99 mg/dL (9-20); Calcium 9.1 mg/dL (8.4-10.2); Carbon Dioxide 24 mmol/L (22-30); Chloride 97 mmol/L (98-107); Estimated CRCL calculation 7 ml/min; Estimated Glomerular Filt Rate 5; Glucose 139 mg/dL (65-110); Phosphorus 8.9 mg/dL (2.5-4.5); Potassium 3.2 mmol/L (3.4-5.0); Sodium 137 mmol/L (137-145)
--- NOTE | 2021-04-21 10:04 | PM.DS ---
DS: Admitting Diagnosis Discharge Date Shortness of breath Admitting Diagnosis 04/21/2021 DS: Discharge Diagnosis Discharge Diagnosis (1) Acute respiratory failure with hypoxia: Code(s): J96.01 - Acute respiratory failure with hypoxia Status: Acute Assessment and Plan: Secondary to COVID-19 pneumonia treated with IV dexamethasone oxygen wean off oxygen (2) Pneumonia due to COVID-19 virus: Code(s): U07.1 - COVID-19; J12.82 - Pneumonia due to coronavirus disease 2018 Status: Acute Assessment and Plan: Status post dexamethasone (3) Hand ulceration: Qualifiers: Non-pressure ulcer stage: with fat layer exposed Qualified Code(s): L98.492 - Non-pressure chronic ulcer of skin of other sites with fat layer exposed Code(s): L98.499 - Non-pressure chronic ulcer of skin of other sites with unspecified severity Status: Acute Assessment and Plan: Plastic surgeon recommendation appreciated Associated with cellulitis of the hand treated with IV antibiotics secondary to E coli sensitive to cefepime and Rocephin antibiotic was switched to IV Rocephin patient will be discharged on Keflex follow-up with PCP and surgeon as outpatient Patient is plan to get MRI in couple of days Patient is plan to follow-up with wound care in 2 days Patient is not able to move his index finger since the surgery on December (4) Obstructive sleep apnea: Code(s): G47.33 - Obstructive sleep apnea (adult) (pediatric) Status: Acute Assessment and Plan: Resume home treatment (5) Infected wound: Code(s): T14.8XXA - Other injury of unspecified body region, initial encounter; L08.9 - Local infection of the skin and subcutaneous tissue, unspecified Status: Acute Assessment and Plan: Management as above (6) ESRD (end stage renal disease): Code(s): N18.6 - End stage renal disease Status: Acute Assessment and Plan: on dialysis DS: Summary Hospital Course Hospital Course: Patient presented to the hospital shortness of breath was found to have COVID-19 pneumonia and fluid overload from ESRD patient was started on dialysis also was treated with dexamethasone patient required oxygen during hospitalization up to 15 L oxygen home O2 evaluation Patient also has hand cellulitis treated with IV antibiotics culture showed E coli sensitive to Rocephin patient will be discharged on Keflex patient is planned to follow up with his surgeon also plan to follow-up with the wound care and get an MRI as outpatient Time Spent with Patient Time attestation: Total time spent providing and/or coordinating discharge services: DS: Data Data Completed and Pending Labs on day of discharge: Labs from last 24 hours 04/21/21 04/21/21 04/21/21 08:03 07:51 07:51 WBC 13.2 H RBC 5.03 Hgb 13.4 L Hct 40.7 L MCV 80.9 MCH 26.6 MCHC 32.9 RDW 15.8 H Plt Count 281 MPV 12.3 H % Immature Plt Fraction 9.6 Sodium 137 Potassium 3.2 L Chloride 97 L Carbon Dioxide 24 Anion Gap 16 BUN 99 H D Creatinine 13.20 H Estim Creat Clear Calc 7 Estimated GFR 5 L Glucose 139 H POC Capillary Glucose 133 H Calcium 9.1 Phosphorus 8.9 H Albumin 2.9 L 04/20/21 04/20/21 04/20/21 20:45 16:39 11:59 WBC RBC Hgb Hct MCV MCH MCHC RDW Plt Count MPV % Immature Plt Fraction Sodium Potassium Chloride Carbon Dioxide Anion Gap BUN Creatinine Estim Creat Clear Calc Estimated GFR Glucose POC Capillary Glucose 362 H 214 H 106 H Calcium Phosphorus Albumin Discharge Plan Discharge Attending physician on discharge: Sirena Anderson M.A. Consulting providers: William Levine ; Mando Skelton Discharging Clinician: Sirena Anderson M.A. Anticipated Discharge Date/Time: 04/21/21 09:54 Patient Disposition: Home Health
[2021-04-21 11:39] LABS: Glucose Point of Care 234 mg/dl (65-105)
== END 2021-04-21 14:15 | disposition home health service (06) | DRG 177 ==
LOC: ANHED 22:48 → ANHIMU 04-13 09:42 → ANH3MEDSUR 04-21 09:58 → ANHIMU 04-22 10:52
PROVIDERS: Internal Medicine Nephrology; Admitting Provider Internal Medicine; Emergency Provider Family Medicine; PCP Internal Medicine; Visit Provider Family Medicine
DX: U07.1 COVID-19 (principal); J12.82 Pneumonia due to coronavirus disease 2019; J96.01 Acute respiratory failure with hypoxia; N18.6 End stage renal disease; I12.0 Hypertensive chronic kidney disease with stage 5 chronic kidney disease or end stage renal disease; L03.113 Cellulitis of right upper limb; E11.22 Type 2 diabetes mellitus with diabetic chronic kidney disease; Z99.2 Dependence on renal dialysis; D63.1 Anemia in chronic kidney disease; E11.42 Type 2 diabetes mellitus with diabetic polyneuropathy; E11.65 Type 2 diabetes mellitus with hyperglycemia; E11.621 Type 2 diabetes mellitus with foot ulcer; L97.529 Non-pressure chronic ulcer of other part of left foot with unspecified severity; N25.0 Renal osteodystrophy; L98.492 Non-pressure chronic ulcer of skin of other sites with fat layer exposed; L08.89 Other specified local infections of the skin and subcutaneous tissue; B96.20 Unspecified Escherichia coli [E. coli] as the cause of diseases classified elsewhere; G47.33 Obstructive sleep apnea (adult) (pediatric); Z28.21 Immunization not carried out because of patient refusal; Z79.899 Other long term (current) drug therapy; Z86.74 Personal history of sudden cardiac arrest; Z89.421 Acquired absence of other right toe(s); Z91.041 Radiographic dye allergy status; Z98.42 Cataract extraction status, left eye; Z98.41 Cataract extraction status, right eye; Z96.1 Presence of intraocular lens; Z98.84 Bariatric surgery status
CPT/HCPCS: 36415; 36600; 71045; 73130; 80053; 80069; 80202; 82805; 82948; 85025; 85027; 85055; 85380; 86704; 86706; 87040; 87070; 87075; 87077; 87186; 87205; 87340; 93005; 96374; 97110; 97162; 97165; 97535; 99285; A9270; G0257; J0692; J0696; J1100; J1644; J1815; J3370; J7030

== ENCOUNTER 2021-05-05 09:07 | Emergency (ER) | payer OTHER, MEDICARE, SELFPAY ==
[2021-05-05 09:09] VITALS: BP 148/72; PULSE 101; RESP 16; TEMP 36.5; O2SAT 93
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
== END 2021-05-05 11:38 | disposition home or self-care (01) ==
PROVIDERS: Emergency Provider Emergency Medicine; PCP Internal Medicine
DX: Z04.1 Encounter for examination and observation following transport accident (principal); T81.89XA Other complications of procedures, not elsewhere classified, initial encounter; E11.628 Type 2 diabetes mellitus with other skin complications; E11.22 Type 2 diabetes mellitus with diabetic chronic kidney disease; I12.0 Hypertensive chronic kidney disease with stage 5 chronic kidney disease or end stage renal disease; N18.6 End stage renal disease; Z99.2 Dependence on renal dialysis; D63.1 Anemia in chronic kidney disease; E11.42 Type 2 diabetes mellitus with diabetic polyneuropathy; E11.21 Type 2 diabetes mellitus with diabetic nephropathy; G47.33 Obstructive sleep apnea (adult) (pediatric); N25.0 Renal osteodystrophy; Z79.4 Long term (current) use of insulin; V47.5XXA Car driver injured in collision with fixed or stationary object in traffic accident, initial encounter
CPT/HCPCS: 99282

== ENCOUNTER 2021-12-16 06:42 | Outpatient (CLI) | payer MEDICARE, SELFPAY ==
--- NOTE | ~2021-12-16 | MR_ITS ---
EXAMINATION: MR hand RT wo con DATE: 12/16/2021 07:51 INDICATION: Other chronic osteomyelitis of right hand. TECHNIQUE: Magnetic resonance imaging (MRI) of the right hand was performed without intravenous contr ast. COMPARISON: Right hand radiographs 04/15/2021 FINDINGS: There is amputation of first metacarpophalangeal joint. There is amputation of diaphysis of second me tacarpal. There is amputation at fourth proximal interphalangeal joint. There is a skin defect overly ing third middle phalanx. There is bone marrow edema in third proximal, middle, and distal phalanges characterized by increased T2-weighted signal intensity and normal T1-weighted signal intensity, cons istent with reactive osteitis. There is a skin defect ulnar to fifth middle and distal phalanges. The re is bone marrow edema of fifth middle and distal phalanges characterized by increased T2-weighted s ignal intensity and normal T1-weighted signal intensity, consistent with reactive osteitis. There is mild osteoarthritis of third metacarpophalangeal joint. IMPRESSION: 1. Skin defects of the third and fifth digits with bone marrow signal abnormality in the third proxim al, middle, and distal phalanges and fifth middle and distal phalanges suggesting reactive osteitis. Early osteomyelitis cannot be excluded. Reviewed, dictated and finalized at location A. IMPRESSION: 1. Skin defects of the third and fifth digits with bone marrow signal abnormali ty in the third proximal, middle, and distal phalanges and fifth middle and dis zach phalanges suggesting reactive osteitis. Early osteomyelitis cannot be exclu ded.
== END 2021-12-16 06:43 | disposition home or self-care (01) ==
PROVIDERS: PCP Internal Medicine
DX: M86.641 Other chronic osteomyelitis, right hand (principal)
CPT/HCPCS: 73218